=== PATIENT | male | born 1940 | race Caucasian/White ===

== ENCOUNTER 2019-05-18 06:29 | Inpatient (IN) ==
[2019-05-18 07:14] LABS: Basophils # (auto) 0.03 K/uL (0-0.2); Basophils % (auto) 0.4 %; Eosinophils # (auto) 0.15 K/uL (0-0.5); Eosinophils % (auto) 1.9 %; Hematocrit (blood only) 46.7 % (42-52); Hemoglobin 16.8 g/dL (14.0-18.0); Immature Granulocytes # (auto) 0.06 K/uL (0.00-0.02); Immature Granulocytes % (auto) 0.8 %; Lymphocytes # (auto) 1.34 K/uL (1.2-3.4); Lymphocytes % (auto) 17.1 %; Mean Corpuscular Volume 86.2 fL (80-100); Mean Platelet Volume 9.4 fL (7.4-10.4); Monocytes # (auto) 1.36 K/uL (0.11-0.59); Monocytes % (auto) 17.4 %; Neutrophils # (auto) 4.88 K/uL (1.4-6.5); Neutrophils % (auto) 62.4 %; Platelet Count 273 K/uL (130-400); RDW Coefficient of Variation 13.4 % (11.5-14.5); Red Blood Count 5.42 M/uL (4.7-6.1); White Blood Count 7.82 K/uL (4.8-10.8)
--- NOTE | 2019-05-18 07:18 | XRay Report ---
XR chest 1V portable CLINICAL HISTORY: Atypical chest pain COMPARISON STUDY: No previous studies for comparison. FINDINGS: The cardiac and mediastinal contours are normal. There is no evidence of focal pulmonary co nsolidation. There is no evidence of failure. No pleural effusions are visualized.[There is a mild sp inal curvature convex to the right. No pneumothorax is visualized. IMPRESSION: No active disease in the chest. Electronically signed by: Pipe Alexis M.D. 05/18/2019 7:17 AM
[2019-05-18 07:24] LABS: Prothrombin Time 10.1 Seconds (9.0-12.0)
[2019-05-18 07:42] LABS: Albumin Level 3.5 gm/dl (3.4-5.0); BUN Creatinine Ratio 12.9 (10-20); Calcium 8.9 mg/dl (8.5-10.1); Creatinine Clr Calc Pharmacy 67.1 ml/min; Est GFR (African American) 73.6; Est GFR (Non-African American) 63.5; Magnesium 2.1 mg/dl (1.8-2.4); Potassium 3.9 mmol/L (3.5-5.1)
[2019-05-18 07:54] LABS: Albumin Globulin Ratio 0.9 (0.9-2); Bilirubin,Total 0.6 mg/dl (0.2-1); Thyroid Stimulating Hormone 3.1 uIu/ml (0.300-4.500); Total Protein 7.5 gm/dl (6.4-8.2); Troponin I 0.203 ng/ml (0-0.045)
[2019-05-18] MEDS ORDERED: Heparin IV Low Dose WITH Bolus STA (08:26)
[2019-05-18] MEDS ORDERED: HEPARIN SODIUM/DEXTROSE 25,000 UNITS/500 ML BAG IV SCH (08:30)
--- NOTE | 2019-05-18 08:33 | Emergency Department Note ---
Entered by Shukri Bay acting as a scribe for Rosi Hollis DO History of Present Illness General Chief complaint: Chest Pain Stated complaint: CHEST PAIN,PAIN ACROSS SHOULDERS DOWN LT ARM Time Seen by Provider: 05/18/19 06:41 Source: patient History of Present Illness Onset (ago): hour(s) (earlier in the night, prior to arrival ) Location: chest Pain Consistency: + other (episode) Maximum Pain Intensity: 6 Quality: + other (chest pain) Associated symptoms: + cough and + other (+cold sweats; +left arm pain; +jaw pain; +diarrhea; -dizziness; -lightheadedness; ); no fever/chills and no shortness of breath Treatments prior to arrival: other (2 Excedrin and 1 Prilosec ) The patient is a 78 year old male, with past medical history of prostate cancer, who presents to the Emergency Room with complaints of an episode of chest pain that occurred in the middle of the night, prior to arrival. The patient notes the chest pain went across the left-side of his chest and woke him up in the middle of the night. The patient notes he also started developing cold sweats and left arm pain from this episode. However, the patient states the arm pain did not seem to be radiating from the chest pain but instead, seemed separate from the chest pain. He also reports of jaw pain, but the patient states he originally attributed this pain to grinding his teeth. The patient states the chest pain did not seem to be associated with anything including movement or taking deep breaths. The patient denies pain currently. He notes he took 2 Excedrin and 1 Prilosec prior to arrival. He states he had an episode of chest pain approximately a month ago, but he states the arm pain and cold sweats did not occur at that time. The patient states he had episode of diarrhea a while ago. He also notes of a cough. The patient denies dizziness, lightheadedness, shortness of breath, fever, or recent change in medications. The patient reports of increased stress recently due to a move from [place] to here. The patient also states he got a heart catheterization done in early February of 2011 where he states he was told he had a 15% blockage. The patient denies seeing a dewer. Home Medications Home Medications Medication Instructions Recorded Confirmed Type omeprazole magnesium [Prilosec OTC] 20 mg PO DAILY 05/18/19 05/18/19 History Allergies Allergy/AdvReac Type Severity Reaction Status Date / Time No Known Allergies Allergy Unverified 05/18/19 06:55 Past Med/Surg History Medical History Prostate cancer Family History Other No significant family history Social History Preferred Language: Swedish Communication Ability: Effective Burn Out Tender Lace Required: No Beliefs That Will Affect Care: None Current Living Situation: Family Feels Safe at Home: Yes Smoking Status: Former smoker Hx Alcohol Use: Yes Alcohol type: wine Hx Substance Use: No Review of Systems See HPI for pertinent positives & negatives. and A total of 10 systems reviewed and were otherwise negative Physical Exam Vital Signs Vital Signs - 24 hr 05/18/19 07:30 05/18/19 07:31 05/18/19 07:35 Pulse Rate 66 66 Pulse Rate [Apical] 67 Pulse Rate from SpO2 Sensor 65 67 Pulse Rhythm [Apical] Regular Pulse Strength [Apical] Normal Respiratory Rate 7 L 9 L 16 Respiratory Effort / Characteristics Non-Labored Spontaneous Respiratory Depth Normal Respiratory Pattern Regular Blood Pressure 168/94 H Blood Pressure [Left Arm] 168/94 H Blood Pressure Mean 126 Blood Pressure Mean [Left Arm] 118 Blood Pressure Position [Left Arm] Lying Pulse Oximetry 95 96 95 Oxygen Delivery Method Room Air 05/18/19 07:45 05/18/19 08:00 05/18/19 08:01 Pulse Rate 69 68 69 Pulse Rate [Apical] 68 Pulse Rate from SpO2 Sensor 69 67 69 Pulse Rhythm [Apical] Regular Pulse Strength [Apical] Normal Respiratory Rate 12 12 17 Respiratory Effort / Characteristics Non-Labored Spontaneous Respiratory Depth Normal Respiratory Pattern Regular Blood Pressure 173/103 H Blood Pressure [Left Arm] 173/103 H Blood Pressure Mean 136 Blood Pressure Mean [Left Arm] 126 Blood Pressure Position [Left Arm] Lying Pulse Oximetry 96 94 94 Oxygen Delivery Method Room Air 05/18/19 08:15 05/18/19 08:30 05/18/19 08:31 Pulse Rate 72 Pulse Rate [Apical] Pulse Rate from SpO2 Sensor 73 76 78 Pulse Rhythm [Apical] Pulse Strength [Apical] Respiratory Rate 14 15 17 Respiratory Effort / Characteristics Respiratory Depth Respiratory Pattern Blood Pressure 197/104 H Blood Pressure [Left Arm] Blood Pressure Mean 141 Blood Pressure Mean [Left Arm] Blood Pressure Position [Left Arm] Pulse Oximetry 95 94 97 Oxygen Delivery Method 05/18/19 08:45 05/18/19 09:00 05/18/19 09:01 Pulse Rate 67 73 Pulse Rate [Apical] Pulse Rate from SpO2 Sensor 74 70 73 Pulse Rhythm [Apical] Pulse Strength [Apical] Respiratory Rate 10 L 18 14 Respiratory Effort / Characteristics Respiratory Depth Respiratory Pattern Blood Pressure 182/117 H Blood Pressure [Left Arm] Blood Pressure Mean 138 Blood Pressure Mean [Left Arm] Blood Pressure Position [Left Arm] Pulse Oximetry 98 95 98 Oxygen Delivery Method 05/18/19 09:15 05/18/19 09:30 Pulse Rate 73 70 Pulse Rate [Apical] 70 Pulse Rate from SpO2 Sensor 73 70 Pulse Rhythm [Apical] Regular Pulse Strength [Apical] Normal Respiratory Rate 20 18 Respiratory Effort / Characteristics Non-Labored Spontaneous Respiratory Depth Normal Respiratory Pattern Regular Blood Pressure 184/105 H Blood Pressure [Left Arm] 184/105 H Blood Pressure Mean 125 Blood Pressure Mean [Left Arm] 131 Blood Pressure Position [Left Arm] Lying Pulse Oximetry 98 98 Oxygen Delivery Method Room Air GENERAL: alert, well appearing, well nourished, no distress, non-toxic EYE EXAM: normal conjunctiva, PERRL and EOM's grossly intact OROPHARYNX: no exudate, no erythema, lips, buccal mucosa, and tongue normal and mucous membranes are moist NECK: supple, no nuchal rigidity, no adenopathy, non-tender LUNGS: Clear to auscultation. Normal chest wall mechanics, no w/r/r HEART: no murmurs, S1 normal and S2 normal, no reproducible chest wall pain ABDOMEN: abdomen soft, non-tender, normo-active bowel sounds, no masses, no rebound or guarding. BACK: Back is symmetrical on inspection and there is no deformity, no midline tenderness, no CVA tenderness. SKIN: no rashes and no bruising UPPER EXTREMITIES: upper extremities are grossly normal. FROM, nml pulses b/l. LOWER EXTREMITIES: No pitting edema. FROM, nml pulses b/l. NEURO EXAM: Normal sensorium, cranial nerves II-XII intact, normal speech, no weakness of arms, no weakness of legs. Course Course 0643: Past medical records reviewed. The patient was evaluated in room A10. A complete history and physical exam was performed. 0821: I updated the patient on his case and his lab finding of elevated troponin. The patient states he is not experiencing any symptoms currently. Discussed plan for additional inpatient evaluation and he was in agreement. No contraindications per my discussion with pt for anticoagulation. 0849: I reviewed the patient's case with Dr. [facility]. Dr. Bianchi will evaluate the patient for further management. 0940: I discussed the patient's case with Dr. Ramirez-Cardiology. Dr. Ramirez is evaluating the patient at bedside. Consultations Consultation #1: I reviewed the patient's case with Dr. [facility]. Dr. Bianchi will evaluate the patient for further management. Time: 08:49 Consultation #2: I discussed the patient's case with Dr. Ramirez-Cardiology. Dr. Ramirez is evaluating the patient at bedside. Time: 09:40 Administered Medications Acetaminophen (Tylenol) 650 mg PO Q4H PRN PRN Reason: Mild Pain (scale 1-3) Stop: 06/17/19 12:29 Last Admin: 05/18/19 20:15 Dose: 650 mg Documented by: [id number] Admin: 05/18/19 14:21 Dose: 650 mg Documented by: [id number] Lisinopril (Zestril) [address] [facility] Stop: 06/17/19 12:34 Last Admin: 05/18/19 14:21 Dose: 10 mg Documented by: [id number] Metoprolol Tartrate (Lopressor) [address] [facility] Stop: 06/17/19 12:34 Last Admin: 05/18/19 20:10 Dose: 25 mg Documented by: [id number] Admin: 05/18/19 14:21 Dose: 25 mg Documented by: [id number] Discontinued Medications Atropine Sulfate (Atropine Sulfate) Confirm Administered Dose 1 mg IV .STK-MED ONE Stop: 05/18/19 11:08 Last Admin: 05/18/19 14:23 Dose: Not Given Documented by: [id number] Fentanyl Citrate (Fentanyl Citrate) Confirm Administered Dose 100 mcg .ROUTE .ST K-MED ONE Stop: 05/18/19 10:24 Last Increment: 05/18/19 11:58 Dose: 50 mcg Documented by: [id number] Heparin Sodium (Beef Lung) (Heparin Sod 5000u Heart Alert) Confirm Administered Dose 5,000 units .ROUTE .STK-MED ONE Stop: 05/18/19 08:46 Last Admin: 05/18/19 08:50 Dose: 4,000 units Documented by: [id number] Cosigned by: [id number] Heparin Sodium (Porcine) (Heparin Iv Bolus (Teenage Program Director Use Only)) Confirm Administered Dose 10,000 units .ROUTE .STK-MED ONE Stop: 05/18/19 10:23 Last Admin: 05/18/19 11:58 Dose: 10,000 units Documented by: [id number] Heparin Sodium (Porcine) (Heparin Iv Bolus (Teenage Program Director Use Only)) Confirm Administered Dose 10,000 units .ROUTE .STK-MED ONE Stop: 05/18/19 11:42 Last Admin: 05/18/19 14:22 Dose: Not Given Documented by: [id number] Heparin Sodium/Dextrose () 1 ea N/A NOW STA; Protocol Stop: 05/18/19 08:27 Last Admin: 05/18/19 08:54 Dose: Not Given Documented by: [id number] Heparin Sodium/Sodium Chloride (Heparin/Nss 1000 Unit/500ml Flush Bag) Confirm Administered Dose 3,000 units IV .STK-MED ONE Stop: 05/18/19 10:24 Last Admin: 05/18/19 11:57 Dose: 3,000 units Documented by: [id number] Hydralazine HCl (Hydralazine Hcl) Confirm Administered Dose 20 mg .ROUTE .STK- MED ONE Stop: 05/18/19 12:33 Last Admin: 05/18/19 14:22 Dose: Not Given Documented by: [id number] Heparin Sodium/Dextrose (Heparin Sodium/Dextrose) 25,000 units in 500 mls @ 0.02 mls/hr IV .Q24H AMRIK; Protocol Stop: 06/17/19 08:29 Last Admin: 05/18/19 08:51 Dose: 1,000 units/hr, 20 mls/hr Documented by: [id number] Cosigned by: [id number] Sodium Chloride (Nss 1000ml) 1,000 mls @ 100 mls/hr IV .Q10H AMRIK Stop: 05/18/19 18:29 Last Admin: 05/18/19 15:37 Dose: Not Given Documented by: [id number] Metoprolol Tartrate (Lopressor) 5 mg IV NOW STA Stop: 05/18/19 10:12 Last Admin: 05/18/19 10:35 Dose: 5 mg Documented by: [id number] Midazolam HCl (Versed) Confirm Administered Dose 2 mg .ROUTE .STK-MED ONE Stop: 05/18/19 10:24 Last Increment: 05/18/19 11:58 Dose: 1 mg Documented by: [id number] Nicardipine HCl (Cardene) Confirm Administered Dose 25 mg .ROUTE .STK-MED ONE Stop: 05/18/19 10:23 Last Admin: 05/18/19 11:57 Dose: 25 mg Documented by: [id number] Nitroglycerin (Nitro-Bid 2%) 1 inch EXT NOW ONE Stop: 05/18/19 08:52 Last Admin: 05/18/19 09:00 Dose: 1 inch Documented by: [id number] Nitroglycerin (Nitro-Bid 2%) 1 inch EXT Q6 AMRIK Stop: 06/17/19 13:59 Last Admin: 05/18/19 15:38 Dose: Not Given Documented by: [id number] Nitroglycerin/Dextrose (Nitroglycerin/D5w 100 Mcg/Ml 20ml Syringe) Confirm Administered Dose 2,000 mcg .ROUTE .STK-MED ONE Stop: 05/18/19 10:24 Last Admin: 05/18/19 11:58 Dose: 2,000 mcg Documented by: [id number] Pneumococcal Polyvalent Vaccine (Pneumovax-23) 25 mcg IM .ONCE ONE Stop: 05/18/19 15:01 Last Admin: 05/18/19 17:38 Dose: Not Given Documented by: [id number] Prasugrel (Effient) Confirm Administered Dose 60 mg PO .STK-MED ONE Stop: 05/18/19 12:02 Last Admin: 05/18/19 14:22 Dose: Not Given Documented by: [id number] Critical Care Time Critical Care Time: Yes Total Critical Care Time: 35 I have personally spent 35 minutes of critical care time in the direct management of this patient. This includes bedside care, interpretation of diagnostic studies, and testing, discussion with consultants, patient, and family members, and other required patient management activities. This 35 minutes is in excess of all separately billable procedures. Medical Decision Making Differential Diagnosis Differential diagnosis: Etiologies such as cardiac ischemia, aortic dissection, pulmonary embolism, pneumonia, pneumothorax, musculoskeletal, infections, pericarditis, myocarditis, esophageal rupture, gastrointestinal, as well as others were entertained. Medical Records Attestation: I reviewed the patient's medical records. Home Medications Current Medication List: was personally reviewed by me Laboratory Data Attestation: I reviewed the patient's lab results. Result diagrams: 05/19/19 05:57 05/19/19 05:57 Lab Results 05/18/19 05/18/19 05/18/19 Range/Units 07:02 07:02 07:02 WBC 7.82 (4.8-10.8) K/uL RBC 5.42 (4.7-6.1) M/uL Hgb 16.8 (14.0-18.0) g/dL Hct 46.7 (42-52) % MCV 86.2 (80-100) fL MCH 31.0 (25-34) pg MCHC 36.0 (32-36) g/dL RDW Std Deviation 42.0 (36.4-46.3) fL RDW Coeff of Paulo 13.4 (11.5-14.5) % Plt Count 273 (130-400) K/uL MPV 9.4 (7.4-10.4) fL Immature Gran % (Auto) 0.8 % Neut % (Auto) 62.4 % Lymph % (Auto) 17.1 % [place] % (Auto) 17.4 % Eos % (Auto) 1.9 % Baso % (Auto) 0.4 % Immature Gran # (Auto) 0.06 H (0.00-0.02) K/uL Neut # (Auto) 4.88 (1.4-6.5) K/uL Lymph # (Auto) 1.34 (1.2-3.4) K/uL [place] # (Auto) 1.36 H (0.11-0.59) K/uL Eos # (Auto) 0.15 (0-0.5) K/uL Baso # (Auto) 0.03 (0-0.2) K/uL PT 10.1 (9.0-12.0) Seconds INR 1.0 (0.9-1.1) Sodium 141 (136-145) mmol/L Potassium 3.9 (3.5-5.1) mmol/L Chloride 111 H (98-107) mmol/L Carbon Dioxide 26 (21-32) mmol/L Anion Gap 5.0 (3-11) BUN 14 (7-18) mg/dl Creatinine 1.10 (0.6-1.4) mg/dl Est Cr Clr Drug Dosing 67.1 ml/min Est GFR ( Amer) 73.6 Est GFR (Non-Af Amer) 63.5 BUN/Creatinine Ratio 12.9 (10-20) Glucose 109 H (70-99) mg/dl Calcium 8.9 (8.5-10.1) mg/dl Magnesium 2.1 (1.8-2.4) mg/dl Total Bilirubin 0.6 (0.2-1) mg/dl AST 14 L (15-37) U/L ALT 19 (12-78) U/L Alkaline Phosphatase 71 (45-117) U/L Troponin I 0.203 H* (0-0.045) ng/ml NT-Pro-B Natriuret Pep 95 (0-1800) pg/ml Total Protein 7.5 (6.4-8.2) gm/dl Albumin 3.5 (3.4-5.0) gm/dl Globulin 4.0 (2.5-4.0) gm/dl Albumin/Globulin Ratio 0.9 (0.9-2) Lipase 251 (73-393) U/L TSH 3.100 (0.300-4.500) uIu/ml 05/18/19 Range/Units 07:02 WBC (4.8-10.8) K/uL RBC (4.7-6.1) M/uL Hgb (14.0-18.0) g/dL Hct (42-52) % MCV (80-100) fL MCH (25-34) pg MCHC (32-36) g/dL RDW Std Deviation (36.4-46.3) fL RDW Coeff of Paulo (11.5-14.5) % Plt Count (130-400) K/uL MPV (7.4-10.4) fL Immature Gran % (Auto) % Neut % (Auto) % Lymph % (Auto) % [place] % (Auto) % Eos % (Auto) % Baso % (Auto) % Immature Gran # (Auto) (0.00-0.02) K/uL Neut # (Auto) (1.4-6.5) K/uL Lymph # (Auto) (1.2-3.4) K/uL [place] # (Auto) (0.11-0.59) K/uL Eos # (Auto) (0-0.5) K/uL Baso # (Auto) (0-0.2) K/uL PT (9.0-12.0) Seconds INR (0.9-1.1) Sodium (136-145) mmol/L Potassium (3.5-5.1) mmol/L Chloride (98-107) mmol/L Carbon Dioxide (21-32) mmol/L Anion Gap (3-11) BUN (7-18) mg/dl Creatinine (0.6-1.4) mg/dl Est Cr Clr Drug Dosing ml/min Est GFR ( Amer) Est GFR (Non-Af Amer) BUN/Creatinine Ratio (10-20) Glucose (70-99) mg/dl Calcium (8.5-10.1) mg/dl Magnesium (1.8-2.4) mg/dl Total Bilirubin (0.2-1) mg/dl AST (15-37) U/L ALT (12-78) U/L Alkaline Phosphatase (45-117) U/L Troponin I Cancelled (0-0.045) ng/ml NT-Pro-B Natriuret Pep (0-1800) pg/ml Total Protein (6.4-8.2) gm/dl Albumin (3.4-5.0) gm/dl Globulin (2.5-4.0) gm/dl Albumin/Globulin Ratio (0.9-2) Lipase (73-393) U/L TSH Cancelled (0.300-4.500) uIu/ml Imaging Data Radiologist's Impression: Radiology results as stated below per my review and the radiologist's interpretation: XR chest 1V portable CLINICAL HISTORY: Atypical chest pain COMPARISON STUDY: No previous studies for comparison. FINDINGS: The cardiac and mediastinal contours are normal. There is no evidence of focal pulmonary consolidation. There is no evidence of failure. No pleural effusions are visualized.[There is a mild spinal curvature convex to the right. No pneumothorax is visualized. IMPRESSION: No active disease in the chest. Electronically signed by: Pipe Alexis M.D. 05/18/2019 7:17 AM ECG Data Attestation: I personally reviewed and interpreted this ECG as follows: Indication: + chest pain Rate (beats per minute): 66 Rhythm: + normal sinus ECG Intervals/blocks: + Normal QRS, + Normal IA and + Normal QT-c ECG [place]: + Normal ECG ST segments: no ST depression and no ST elevation ECG Findings: + Peaked T waves (V3 and V4); no PACs and no PVCs Comparison ECG Date: no prior available Blood Pressure Blood Pressure Findings: Elevated blood pressure Blood Pressure Disposition: further management by hospitalist MDM Narrative Pt here with concerning story of chest pain. Doesn't currently follow with cardiology. Pt felt symptoms possibly due to increased stress as he is relocating from [place]. At time of my evaluation, symptoms had resolved. Pt updated on results. Pt with hyperacute T waves on EKG and positive troponin. Pt started on heparin drip and case discussed with hospitalist. Pt had take excedrin prior to arrival which has aspirin in it so no additional ASA was given. Nitro paste applied as a precaution due to elevated BP with likely NSTEMI. Pt denied any recurrent symptoms while in the ER. Impression & Plan Chest pain, Non-ST elevation AL (NSTEMI) Discharge Plan Visit Data *Final* Discharge Date/Time: 05/18/19 10:10 Chief Complaint: Chest Pain Stated Complaint: CHEST PAIN,PAIN ACROSS SHOULDERS DOWN LT ARM ED Provider: Rosi Hollis Discharge Problem: Chest pain, Non-ST elevation AL (NSTEMI) Patient Disposition: Still a Patient Discharge Instructions Interventions: ED Discharge Assessment Last Done: 05/18/19 10:10 Discharge Problem: Chest pain Qualifiers: Chest pain type: chest pain due to myocardial ischemia Ischemic chest pain type: unspecified angina pectoris type Qualified Code(s): I25.9 - Chronic ischemic heart disease, unspecified The scribe's documentation has been prepared under my direction and personally reviewed by me in its entirety. I confirm that the note above accurately reflects all work, treatment, procedures, and medical decision making performed by me.
[2019-05-18] MEDS ORDERED: HEPARIN SQ 5000 UNIT HEART ALERT CARP ONE (08:45)
[2019-05-18] MEDS ORDERED: NITROGLYCERIN 2% OINTMENT 30GM TUBE EXT ONE (08:51)
--- NOTE | 2019-05-18 09:43 | History & Physical Report ---
Date of Service May 18, 2019 Assessment & Plan (1) Non-ST elevation [place] (NSTEMI): Admit telemetry Troponin 0.2 on initial check, will trend, CXR without acute process Continue nitro paste and heparin gtt started in ED Patient took Excedrin before his arrival to the ED Consulted cardiology - patient will go to chemistry laboratory technician this morning (2) Hypertension: Patient with elevated blood pressures in the ED - currently 184/105 Will provide IV metoprolol for blood pressure control, may need to add other agents but at the moment the patient is not having symptoms and metoprolol will help to reduce myocardial oxygen requirements. Will transition to oral metoprolol once patient is out of the acute phase. (3) GERD (gastroesophageal reflux disease): continue home ppi (4) DVT prophylaxis: heparin gtt History of Present Illness Primary Care Provider: NO PCP Mr. Alfredo awoke around 0400 this morning with pain across his chest that he describes as a sort of "crackling" pain but not pressure. It extended to his left arm and jaw though at the time he thought that he was having three separate issues rather than a radiating pain. He had sweating as well, no nausea. Pain subsided after he arrived to the ED around 0630. He took two Excedrin at home before arriving at the ED. He admits to a lot of stress recently due to moving from [place] to [place] to be closer to family. He feels he has been having similar pain off and on for the last few months. He denies any recent illness, aches or chills, he did have a cough upon arrival to the Ed that that has subsided, no sob. 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 [employer] Family: father of Hodgkin lymphoma, brother has mantle cell lymphoma, mother lived to be Allergies Allergy/AdvReac Type Severity Reaction Status Date / Time No Known Allergies Allergy Unverified 05/18/19 06:55 Home Medications Home Medications Medication Instructions Recorded Confirmed Type omeprazole magnesium [Prilosec OTC] 20 mg PO DAILY 05/18/19 05/18/19 History Past Med/Surg History Medical History Prostate cancer Family History Other No significant family history Social History Preferred Language: Spanish Communication Ability: Effective Commercial Designer Required: No Beliefs That Will Affect Care: None Current Living Situation: Family Feels Safe at Home: Yes Smoking Status: Former smoker Hx Alcohol Use: Yes Alcohol type: wine Hx Substance Use: No Review of Systems Review of Systems: All systems reviewed & are unremarkable except as noted in HPI & below Physical Exam Physical Exam: General: no distress Eyes: normal inspection, PERLL Respiratory: chest non tender, clear to auscultation, normal breath sounds, no respiratory distress, no accessory muscle use Cardiac: regular rate and rhythm, no rub or gallop, no murmur, no edema, no jvd GI/: active bowel sounds, no abd pain or tenderness, soft, non distended Extremities: normal range of motion, normal strength, non tender Neuro/Psych: alert and oriented x 3, normal mood and affect Skin: normal color, dry Results & Data Vital Signs (Past 12 Hours) Vital Signs Temp Pulse Pulse Resp BP BP Pulse Ox 05/18/19 09:15 73 20 98 05/18/19 09:01 73 14 182/117 H 98 05/18/19 09:00 67 18 95 05/18/19 08:45 10 L 98 05/18/19 08:31 17 197/104 H 97 05/18/19 08:30 15 94 05/18/19 08:15 72 14 95 05/18/19 08:01 69 17 94 05/18/19 08:00 68 68 12 173/103 H 173/103 H 94 05/18/19 07:45 69 12 96 05/18/19 07:35 67 16 168/94 H 95 05/18/19 07:31 66 9 L 96 05/18/19 07:30 66 7 L 168/94 H 95 05/18/19 07:15 68 20 97 05/18/19 07:01 81 16 95 05/18/19 07:00 69 69 17 178/99 H 178/99 H 97 05/18/19 06:50 75 16 198/123 H 97 05/18/19 06:49 78 16 99 05/18/19 06:46 98 05/18/19 06:44 78 15 201/110 H 99 05/18/19 06:30 36.8 C 77 18 177/111 H 98 Code Status & VTE Plan VTE Prophylaxis Plan VTE Prophylaxis will be ordered: Yes Supervising Physician Co-Signing Physician Notes I supervised Claudia Bardales NP on this patient's care. I examined the patient today independently of her. I discussed the plan of care with her with the plan being as written in her note except for any following changes/exceptions: None. Feeling well after catheterization. No major concerns at present. He had been having some grief related to a transition in his living situation, but does not think it is reaching the level of depression. PG Care Time/CCT Total # of Minutes Spent Total Time Spent with Patient: Total time spent is greater than 50% in coordination of care (as documented) at patient's floor/unit and/or counseling patient:
[2019-05-18] MEDS ORDERED: METOPROLOL TARTRATE 1 MG/ML VIAL IV PRN (09:44)
[2019-05-18] MEDS ORDERED: METOPROLOL TARTRATE 1 MG/ML VIAL IV STA (10:11)
--- NOTE | 2019-05-18 10:11 | Cardiology Consultation ---
Date of Consultation May 18, 2019 Assessment & Plan (1) Chest pain: --concern for ACS 2. Elevated troponin 3. Hypertension 4. History of tobacco use 5. GERD Patient with an episode of chest and left arm pain with associated diaphoresis this am. Symptoms highly suspicious for ACS. Initial EKG with borderline inferior ST elevation and hyperacute T waves. Initial troponin is elevated. Patient is currently chest pain free. Recommend proceeding with cardiac catheterization. The patient is agreeable. This will be performed by Dr. Trevizo. Patient remains hypertensive and will give additional dose of IV metoprolol 5 mg now. History of Present Illness History of Present Illness Mr. Alfredo is a 78 year old male with medical history significant for GERD and hypertension. He is being seen in the emergency department in the setting of chest pain and elevated troponin. Patient woke up around 1 am with pain across his chest described as a "crackling." No aggravating or alleviating factors. The pain was severe. Eventually developed left arm pain as well as cold sweats. No nausea or shortness of breath. His pain persisted so he had his sister bring him to the ED. His pain resolved around the time he arrived to the ED at 6:30 am. Pain lasted about 5 hours in total. Initial electrocardiogram with borderline inferior ST elevation and hyperacute T waves. Troponin elevated at 0.203. Currently chest pain free. Has been hypertensive since arrival. Currently on heparin infusion. Patient reports undergoing cardiac catheterization in 2000 in [place] for an abnormal stress echo. He was told he had a 20% blockage at that time. Reports rare episodes of chest pain which occur in bed and typically resolve with changing positions. Has a history of GERD on Prilosec. Pain this morning different than usual reflux. Was told in the past he has high blood pressure but not on any antihypertensives. Does not routinely follow with any medical providers. Family history: Mother of CHF at 89. Social history: . 4 children. 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 Also worked at [employer]. Quit smoking in 1989. Allergies Allergy/AdvReac Type Severity Reaction Status Date / Time No Known Allergies Allergy Unverified 05/18/19 06:55 Home Medications Home Medications Medication Instructions Recorded Confirmed Type omeprazole magnesium [Prilosec OTC] 20 mg PO DAILY 05/18/19 05/18/19 History Patient History Medical History Prostate cancer Family History Other No significant family history Social History Preferred Language: Irish Feels Safe at Home: Yes Smoking Status: Former smoker Review of Systems Review of Systems: All systems reviewed & are unremarkable except as noted in HPI & below Physical Exam Physical Exam: General: No acute distress, comfortable. HEENT: Head is normal. PERRLA. EOMI. Sclerae anicteric. Ears, nose and throat unremarkable. Mucous membranes moist. Neck: Normal carotid upstrokes, no bruits. No appreciable JVD. Lungs: Clear to auscultation bilaterally without rales, rhonchi or wheezes. Cardiac: Regular rate and rhythm. S1-S2 normal. No appreciable murmur, gallop or rub. Abdomen: Soft and nontender. Bowel sounds normal. No mass or organomegaly. No abdominal bruit. Extremities/vascular: Well perfused. No peripheral edema. Radial, DP and PT pulses 2+ bilaterally Skin: No rash or abnormal lesions. Normal turgor. Neurologic: Nonfocal Psychiatric: Affect appropriate. Alert and oriented. Results & Data Vital Signs (Past 12 Hours) Vital Signs Temp Pulse Pulse Resp BP BP Pulse Ox 05/18/19 09:30 70 70 18 184/105 H 184/105 H 98 05/18/19 09:15 73 20 98 05/18/19 09:01 73 14 182/117 H 98 05/18/19 09:00 67 18 95 05/18/19 08:45 10 L 98 05/18/19 08:31 17 197/104 H 97 05/18/19 08:30 15 94 05/18/19 08:15 72 14 95 05/18/19 08:01 69 17 94 05/18/19 08:00 68 68 12 173/103 H 173/103 H 94 05/18/19 07:45 69 12 96 05/18/19 07:35 67 16 168/94 H 95 05/18/19 07:31 66 9 L 96 05/18/19 07:30 66 7 L 168/94 H 95 05/18/19 07:15 68 20 97 05/18/19 07:01 81 16 95 05/18/19 07:00 69 69 17 178/99 H 178/99 H 97 05/18/19 06:50 75 16 198/123 H 97 05/18/19 06:49 78 16 99 05/18/19 06:46 98 05/18/19 06:44 78 15 201/110 H 99 05/18/19 06:30 36.8 C 77 18 177/111 H 98 Laboratory Results Laboratory Results - last 24 hr 05/18/19 05/18/19 05/18/19 07:02 07:02 07:02 WBC 7.82 RBC 5.42 Hgb 16.8 Hct 46.7 MCV 86.2 MCH 31.0 MCHC 36.0 RDW Std Deviation 42.0 RDW Coeff of Paulo 13.4 Plt Count 273 MPV 9.4 Immature Gran % (Auto) 0.8 Neut % (Auto) 62.4 Lymph % (Auto) 17.1 [place] % (Auto) 17.4 Eos % (Auto) 1.9 Baso % (Auto) 0.4 Immature Gran # (Auto) 0.06 H Neut # (Auto) 4.88 Lymph # (Auto) 1.34 [place] # (Auto) 1.36 H Eos # (Auto) 0.15 Baso # (Auto) 0.03 PT 10.1 INR 1.0 Sodium 141 Potassium 3.9 Chloride 111 H Carbon Dioxide 26 Anion Gap 5.0 BUN 14 Creatinine 1.10 Est Cr Clr Drug Dosing 67.1 Est GFR ( Amer) 73.6 Est GFR (Non-Af Amer) 63.5 BUN/Creatinine Ratio 12.9 Glucose 109 H Calcium 8.9 Magnesium 2.1 Total Bilirubin 0.6 AST 14 L ALT 19 Alkaline Phosphatase 71 Troponin I 0.203 H* NT-Pro-B Natriuret Pep 95 Total Protein 7.5 Albumin 3.5 Globulin 4.0 Albumin/Globulin Ratio 0.9 Lipase 251 TSH 3.100 05/18/19 07:02 WBC RBC Hgb Hct MCV MCH MCHC RDW Std Deviation RDW Coeff of Paulo Plt Count MPV Immature Gran % (Auto) Neut % (Auto) Lymph % (Auto) [place] % (Auto) Eos % (Auto) Baso % (Auto) Immature Gran # (Auto) Neut # (Auto) Lymph # (Auto) [place] # (Auto) Eos # (Auto) Baso # (Auto) PT INR Sodium Potassium Chloride Carbon Dioxide Anion Gap BUN Creatinine Est Cr Clr Drug Dosing Est GFR ( Amer) Est GFR (Non-Af Amer) BUN/Creatinine Ratio Glucose Calcium Magnesium Total Bilirubin AST ALT Alkaline Phosphatase Troponin I Cancelled NT-Pro-B Natriuret Pep Total Protein Albumin Globulin Albumin/Globulin Ratio Lipase TSH Cancelled PG Care Time/CCT Total # of Minutes Spent Total Time Spent with Patient: Total time spent is greater than 50% in coordination of care (as documented) at patient's floor/unit and/or counseling patient:
[2019-05-18] MEDS ORDERED: NiCARDipine HCL INJ 2.5 MG/ML 10 ML AMP ONE (10:22)
[2019-05-18] MEDS ORDERED: HEPARIN (PORCINE) 1000 UNIT/ML 10 ML (CATH LAB USE ONLY) ONE ×2 (10:22→11:41)
[2019-05-18] MEDS ORDERED: MIDAZOLAM HCL 1 MG/ML 2ML VIAL ONE (10:23)
[2019-05-18] MEDS ORDERED: NITROGLYCERIN/D5W 100MCG/ML 20ML SYR ONE (10:23)
[2019-05-18] MEDS ORDERED: fentaNYL citrate 100 MCG/2 ML VIAL ONE (10:23)
[2019-05-18] MEDS ORDERED: ATROPINE SULFATE 0.1 MG/ML 10ML SYR IV ONE (11:07)
[2019-05-18] MEDS ORDERED: PRASugrel TAB 10 MG TAB PO ONE (12:01)
--- NOTE | 2019-05-18 12:08 | Pre Anesthesia Assessment ---
Date of Service May 18, 2019 Pre Sedation Assessment Vital Signs Temp Pulse Pulse Resp BP BP Pulse Ox 05/18/19 10:35 80 210/102 H 05/18/19 10:10 98.2 F 70 20 172/103 H 97 05/18/19 10:02 20 172/103 H 97 05/18/19 10:00 20 90 05/18/19 09:45 70 18 98 05/18/19 09:30 70 70 18 184/105 H 184/105 H 98 05/18/19 09:15 73 20 98 05/18/19 09:01 73 14 182/117 H 98 05/18/19 09:00 67 18 95 05/18/19 08:45 10 L 98 05/18/19 08:31 17 197/104 H 97 05/18/19 08:30 15 94 05/18/19 08:15 72 14 95 05/18/19 08:01 69 17 94 05/18/19 08:00 68 68 12 173/103 H 173/103 H 94 05/18/19 07:45 69 12 96 05/18/19 07:35 67 16 168/94 H 95 05/18/19 07:31 66 9 L 96 05/18/19 07:30 66 7 L 168/94 H 95 05/18/19 07:15 68 20 97 05/18/19 07:01 81 16 95 05/18/19 07:00 69 69 17 178/99 H 178/99 H 97 05/18/19 06:50 75 16 198/123 H 97 05/18/19 06:49 78 16 99 05/18/19 06:46 98 05/18/19 06:44 78 15 201/110 H 99 05/18/19 06:30 98.2 F 77 18 177/111 H 98 Cardiovascular RRR, no murmur, no edema Respiratory normal respiratory effort, lungs clear to auscultation Pre-Sedation Airway Assessment Smoking Status: Former smoker Short, Thick Neck: No Thyromental Distance: > or= 3.5 Finger Breadths Oral Cavity: + Capped Teeth Mallampati Class: III ASA: ASA3 NPO Status Date of Last Intake of Fluids: 05/17/19 Time of Last Intake of Fluids: 22:00 Date of Last Intake of Solid Food: 05/17/19 Time of Last Intake of Solid Foods: 22:00 Procedure Planning Contraindications for Sedation: none Current Medications Reviewed: Yes Notes The planned sedation has been discussed with the patient. Informed Consent was obtained. I have identified the patient, determined the appropriateness of sedation and have assessed the patient immediately prior to the procedure. All medicine(s) and interventions are by my order.
--- NOTE | 2019-05-18 12:09 | Post Anesthesia Assessment ---
Date of Service May 18, 2019 Post Sedation Assessment Vital Signs Temp Pulse Pulse Resp BP BP Pulse Ox 05/18/19 10:35 80 210/102 H 05/18/19 10:10 98.2 F 70 20 172/103 H 97 05/18/19 10:02 20 172/103 H 97 05/18/19 10:00 20 90 05/18/19 09:45 70 18 98 05/18/19 09:30 70 70 18 184/105 H 184/105 H 98 05/18/19 09:15 73 20 98 05/18/19 09:01 73 14 182/117 H 98 05/18/19 09:00 67 18 95 05/18/19 08:45 10 L 98 05/18/19 08:31 17 197/104 H 97 05/18/19 08:30 15 94 05/18/19 08:15 72 14 95 05/18/19 08:01 69 17 94 05/18/19 08:00 68 68 12 173/103 H 173/103 H 94 05/18/19 07:45 69 12 96 05/18/19 07:35 67 16 168/94 H 95 05/18/19 07:31 66 9 L 96 05/18/19 07:30 66 7 L 168/94 H 95 05/18/19 07:15 68 20 97 05/18/19 07:01 81 16 95 05/18/19 07:00 69 69 17 178/99 H 178/99 H 97 05/18/19 06:50 75 16 198/123 H 97 05/18/19 06:49 78 16 99 05/18/19 06:46 98 05/18/19 06:44 78 15 201/110 H 99 05/18/19 06:30 98.2 F 77 18 177/111 H 98 Recovery Score Activity: Moves 4 extremities Respiration: Deep Breath/Cough Circulation: +/-20% PreAnes Value Consciousness: Fully Awake Oxygen Saturation: O2 needed for >90% Discharge Sedation Level of Care: Fast Track Phase II Post Sedation Plan On clinical assessment, the patient appears to have tolerated the sedation without complications. Patient is recovering as anticipated. Patient will continue to be monitored by nursing and may be discharged when sedation discharge criteria are met per below protocol. Upon Completions of procedure up to 15 minutes continue every 5 minute vital signs and the P.A.R. score; then discharge to a Phase I or Fast Track to Phase II per the following guidelines: * Discharge Patient to appropriate Phase II area if PAR is 8 or greater or return to pre- procedure baseline. The post - procedure orders will be as directed. * If PAR score is less than 8 or not return to pre-procedure baseline then patient will follow Phase I monitoring till PAR is reached for Phase II. The Phase I may be done in procedure room or may call to secure a Phase I area. * If naloxone or flumazenil are used for reversal, hold in Phase I for continued monitoring from when last reversal dose was given for a minimum of 60 minutes or longer pending the nurse and/or physician discretion of patient condition before discharge to Phase II. Please call the Sedation Physician to re-evaluate and complete post-note for discharge to Phase II area. Do NOT discharge from procedure sedation or Phase 1 until post- sedation evaluation note is complete by procedure /sedation MD Sedation Discharge Instructions to be given to the patient at discharge to home.
--- NOTE | 2019-05-18 12:29 | Cardiac Catheterization ---
[facility] Data: Identification Clerk Cardiac Status Clinical evaluation leading to the procedure CAD Presenation: Non STEMI Anginal Classification: CCS IV Heart Failure: No Cardiogenic Shock within 24 Hours: No Cardiac Arrest within 24 Hours: No Imaging Studies Past 6 Months: No Stress Studies Past 6 Months: No Diagnostic Physicians Name: Ervin Trevizo MD Status: Urgent Closure Device Percutaneous Entry Location: Radial Closure Device: Radial Band Recommendations: PCI without planned CABG PCI Indication: PCI for high risk Non-JONAS Lesion Segment Name: Mid RCA Culprit Artery: Yes Stenosis Prior to Rx (%): 95 Chronic Total Occlusion: No IVUS: No FFR: No Pre-Procedure LUCIUS Flow: 2 Previously Treated Lesion: No Lesion Complexity: High/C Lesion Length (mm): 20 Thrombus Present: Yes Bifurcation Lesion: No Guidewire Across Lesion: Stenosis Post-Procedure (%): 0 Post-Procedure LUCIUS Flow: 3 Devices(s) Deployed: Yes Yes Intraprocedure Events Significant Disection: No Perforation: No Cardiac Cath Procedure Full Procedure Date May 18, 2019 Pre-Procedure Diagnosis Pre-Procedure Diagnosis: Non STEMI AUC Score AUC Score: 8 Post-Procedure Diagnosis Post-Procedure Diagnosis: Severe CAD, Successful PCI and Normal Intracardiac Pressures Procedure(s) Performed Procedure(s) Performed: Coronary Angiography, Left Heart Cath, Drug Eluting Stent and IVUS Cutter Grinder Operator Ervin Trevizo MD Waste Hand(s) Alberto Estimated Blood Loss Estimated Blood Loss: 15 Medication(s) Medication(s): Fentanyl, Heparin, Lidocaine 1%, Nicardipine, Nitroglycerin and Versed Medication(s): Prasugrel Summary of Findings Indication: High risk NSTEMI Access: 6 Fr slender right radial artery Catheters: [place], 5 Fr JL 3.5 guide, AR-1 guide Findings: LM -medium caliber vessel, angulated takeoff with 30 to 40% ostial stenosis angiographically. No catheter dampening, good efflux. LAD -medium caliber vessel, proximal to mid luminal irregularities distal vessel tapers to apex. Moderate caliber second diagonal without significant disease Circumflex -large caliber vessel, 20% proximal disease, 50-60 % mid segment disease extending into large OM 2 and distal AV groove segment. RCA -large caliber, dominant, 95% earlymid RCA stenosis with associated thrombus and post stenotic aneurysmal segment, 30 to 40% mid segment disease after takeoff of acute marginal. Large right PDA with 40 to 50% distal disease. LVEDP -17 IVUS of left main Left main cannulated with JL 3.5 guide BMW wire placed into distal LAD Swain IVUS catheter placed into mid LAD Pullback revealed mild proximal to mid LAD disease. Ostium of left main had eccentric plaque with at most 20% stenosis. Wire removed and post procedure angiography revealed no coronary complication. -- PCI of mid RCA-- Antithrombotic therapy: Heparin, Prasugrel Procedure: RCA cannulated with AR-1 guide BMW wire passed across lesion into distal vessel Mid RCA lesion predilated with 2.5 compliant balloon Dilated lesion stented with 3.0 x 18 mm [place] which extends across aneurysmal segment Stent post-dilated with 3.5 noncompliant balloon. Stent across aneurysmal RCA postdilated with 5.0 balloon IC vasodilators administered for spasm Appeared to have possible edge dissection distal to initial stent RCA rewired with BMW wire and telescope guide assist placed Mid RCA after stent dilated with 2.5 balloon Second BROCK (2.75 x 12 mm [place]) placed to mid RCA overlapping distal aspect of initial stent Post procedure LUCIUS 3 flow, stent well expanded with minimal residual stenosis and no apparent cardiac complications. Arterial Closure: TR band Summary: 1. 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 Moderate nonobstructive non-culprit vessel CAD 30% angulated ostial left main (nonobstructive by IVUS). 50 to 60% mid circumflex at bifurcation of large OM 2 3. Normal intracardiac filling pressure 4. Successful PCI of mid RCA with 2 overlapping drug-eluting stents (3.0 x 18, 2.75 x 12 [place]; stent postdilated with 3.5 NC and stent covering aneurysmal vessel dilated with 5.0 NC). 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 Recommend likely extended DAPT in the setting of overlapping stents covering aneurysmal segment. Continue statin, and ASCVD risk factor modification Consult cardiac Rehab Hemodynamics Rest Ao:: 140/79/107 Final Ao: 178/96/113 LV: 149/17 Recommendations Recommendations: PCI without planned CABG Specimens Specimens: None Radiation Exposure (mGy) 5213 Contrast (mls) 200 Fluids (cc crystalloids) Fluids (cc crystalloids): 140 Drains Drains: None Anesthesia Moderate Procedural Complication(s) None Disposition PCU I attest to the content of the Intraoperative Record and any orders documented therein. Any exceptions are noted below. [facility] Card Cath Procedure Codes Cardiac Catheterization Procedure 1: Cardiovascular Cath Procedures: 35488 Coronaries and LHC (+/-LV) Therapeutic Services & Ancillary Proc Procedure 1: Cardiovascular Tx and Anc Procedures: 18484 IV Ultrasound (Coronary or Graft) Moderate Sedation Procedure 1: Sedation/Anesthesia: 71491 Mod Sedation by the same physician;Init15 Min Child Age 5 & Up Procedure 2: Sedation/Anesthesia: 94130 Mod Sedation by the same physician; Ea [id number] Minutes Stenting Procedure 1: Cardiovascular Stent Procedures: 99975 Perc transcatheter placement of intracoronary stent(s), with ang PG Care Time/CCT Total # of Minutes Spent Total Time Spent with Patient: Total time spent is greater than 50% in coordination of care (as documented) at patient's floor/unit and/or counseling patient:
[2019-05-18] MEDS ORDERED: NITROGLYCERIN SL 0.4 MG/TAB TAB SL PRN (12:30)
[2019-05-18] MEDS ORDERED: ONDANSETRON INJ 2 MG/ML 2 ML VIAL IV PRN ×2 (12:30→13:15)
[2019-05-18] MEDS ORDERED: HydrALAZINE HCL 20 MG/ML VIAL ONE (12:32)
[2019-05-18] MEDS ORDERED: ALUMINUM/MAGNESIUM SUSP 30 ML UDC PO PRN (13:15)
[2019-05-18] MEDS ORDERED: POLYETHYLENE (MIRALAX) 17 GM PACK PO PRN (13:15)
[2019-05-18] MEDS ORDERED: MoRPHine SULFATE 2 MG/ML CARP IV PRN (13:15)
[2019-05-18] MEDS ORDERED: SODIUM CHLORIDE 0.9% 1000ML 1,000 ML IV SCH (13:30)
[2019-05-18] MEDS ORDERED: NITROGLYCERIN 2% OINTMENT 30GM TUBE EXT SCH (14:00)
[2019-05-18] MEDS: METOPROLOL TARTRATE 25 MG TAB PO SCH ×2 (14:21→20:10)
[2019-05-18] MEDS: lisinopriL 10 MG TAB PO SCH (14:21)
[2019-05-18] MEDS: ACETAMINOPHEN 325 MG TAB PO PRN ×2 (14:21→20:15)
[2019-05-18] MEDS ORDERED: PNEUMOCOCCAL Polysaccharide Vaccine 25mcg/0.5mL vial/Syr IM ONE (15:00)
[2019-05-18] MEDS ORDERED: INFLUENZA Vaccine HIGH DOSE 65+yrs 0.5 mL Syr IM ONE (15:00)
[2019-05-19 06:09] LABS: Hematocrit (blood only) 40.5 % (42-52); Hemoglobin 14.4 g/dL (14.0-18.0); Lymphocytes % (auto) 19.1 %; Mean Corpuscular Hemoglobin 30.8 pg (25-34); Mean Corpuscular Hgb Conc 35.6 g/dL (32-36); Mean Corpuscular Volume 86.5 fL (80-100); Neutrophils % (auto) 60.4 %; Platelet Count 253 K/uL (130-400); RDW Coefficient of Variation 13.4 % (11.5-14.5); RDW Standard Deviation 42.2 fL (36.4-46.3); Red Blood Count 4.68 M/uL (4.7-6.1); White Blood Count 10.23 K/uL (4.8-10.8)
[2019-05-19 06:10] LABS: Basophils # (auto) 0.03 K/uL (0-0.2); Basophils % (auto) 0.3 %; Eosinophils # (auto) 0.11 K/uL (0-0.5); Eosinophils % (auto) 1.1 %; Immature Granulocytes # (auto) 0.05 K/uL (0.00-0.02); Immature Granulocytes % (auto) 0.5 %; Lymphocytes # (auto) 1.95 K/uL (1.2-3.4); Monocytes % (auto) 18.6 %; Neutrophils # (auto) 6.19 K/uL (1.4-6.5)
[2019-05-19 06:38] LABS: Albumin Level 3.1 gm/dl (3.4-5.0); BUN Creatinine Ratio 12.3 (10-20); Calcium 8.7 mg/dl (8.5-10.1); Est GFR (African American) 78.8; Potassium 3.6 mmol/L (3.5-5.1)
[2019-05-19 06:41] LABS: Albumin Globulin Ratio 0.9 (0.9-2); Bilirubin,Total 0.8 mg/dl (0.2-1); Globulin 3.5 gm/dl (2.5-4.0); Total Protein 6.6 gm/dl (6.4-8.2)
[2019-05-19] MEDS: lisinopriL 10 MG TAB PO SCH (07:50)
[2019-05-19] MEDS: METOPROLOL TARTRATE 25 MG TAB PO SCH (07:51)
[2019-05-19] MEDS ORDERED: ATORVASTATIN 40 MG TAB PO SCH (09:00)
[2019-05-19] MEDS ORDERED: NON-FORMULARY MEDICATION (Omeprazole Magnesium [Prilosec Otc] 20 MG) PO SCH (09:00)
[2019-05-19] MEDS ORDERED: ASPIRIN 81 MG ECTAB PO SCH ×2 (09:00)
[2019-05-19] MEDS ORDERED: PANTOprazole 40 MG TAB PO SCH (09:00)
[2019-05-19] MEDS ORDERED: PRASugrel TAB 10 MG TAB PO SCH (09:00)
--- NOTE | 2019-05-19 10:12 | Cardiology Progress Note ---
Date of Service May 19, 2019 Assessment & Plan (1) Non-ST elevation WI (NSTEMI): --post PCI of mid RCA with 2 overlapping BROCK 2. Moderate nonobstructive non-culprit CAD 3. Hypertension 4. Dyslipidemia 5. History of tobacco use Patient admitted yesterday with NSTEMI post PCI of mid RCA with 2 overlapping stents. Otherwise with moderate nonobstructive disease. No recurrent chest pain. Hemodynamically and electrically stable. On exam well perfused without signs of heart failure. No complications at right radial access site. --Up walking halls today, if tolerates OK to d/c from cardiac standpoint --Dual antiplatelet therapy with ASA and prasugrel for minimum of one year --Continue metoprolol and lisinopril, can increase as outpatient if needed for BP control --High intensity statin --Consult cardiac rehab --F/U in our office in 2 weeks Subjective Patient is feeling well today without acute complaints. Post cardiac cath yesterday with evidence of acute thrombotic early-mid RCA stenosis with poststenotic aneurysm. Underwent successful PCI of mid RCA with 2 overlapping drug eluding stents. Otherwise with moderate nonobstructive disease of ostial left main (nonobstructive by IVUS) and mid circumflex at bifurcation of large OM2. No recurrent chest pain. No shortness of breath, orthopnea, PND, lightheadedness, near syncope or syncope. No issues at right radial access site. Troponin peaked at 3. No events on tele. Review of Systems Review of Systems: All systems reviewed & are unremarkable except as noted in HPI & below Physical Exam Physical Exam: General: No acute distress, comfortable. HEENT: Head is normal. PERRLA. EOMI. Sclerae anicteric. Ears, nose and throat unremarkable. Mucous membranes moist. Neck: Normal carotid upstrokes, no bruits. No appreciable JVD. Lungs: Clear to auscultation bilaterally without rales, rhonchi or wheezes. Cardiac: Regular rate and rhythm. S1-S2 normal. No appreciable murmur, gallop or rub. Abdomen: Soft and nontender. Bowel sounds normal. No mass or organomegaly. No abdominal bruit. Extremities/vascular: -- Well perfused. No peripheral edema. --Radial, DP and PT pulses 2+ bilaterally --R radial access site without hematoma or ecchymosis. Distal pulse/sensation intact. Skin: No rash or abnormal lesions. Normal turgor. Neurologic: Nonfocal Psychiatric: Affect appropriate. Alert and oriented. Results & Data Vital Signs (Past 12 Hours) Vital Signs Temp Pulse Pulse Pulse Resp BP Pulse Ox 05/19/19 08:42 64 05/19/19 07:40 36.6 C 74 18 156/80 H 96 05/19/19 04:46 36.8 C 66 18 120/63 97 05/18/19 23:40 36.9 C 66 19 133/64 96 Laboratory Results Laboratory Results - last 24 hr 05/18/19 05/19/19 05/19/19 13:30 05:57 05:57 WBC 10.23 RBC 4.68 L Hgb 14.4 Hct 40.5 L MCV 86.5 MCH 30.8 MCHC 35.6 RDW Std Deviation 42.2 RDW Coeff of Paulo 13.4 Plt Count 253 MPV 9.0 Immature Gran % (Auto) 0.5 Neut % (Auto) 60.4 Lymph % (Auto) 19.1 [place] % (Auto) 18.6 Eos % (Auto) 1.1 Baso % (Auto) 0.3 Immature Gran # (Auto) 0.05 H Neut # (Auto) 6.19 Lymph # (Auto) 1.95 [place] # (Auto) 1.90 H Eos # (Auto) 0.11 Baso # (Auto) 0.03 Sodium 142 Potassium 3.6 Chloride 111 H Carbon Dioxide 26 Anion Gap 5.0 BUN 13 Creatinine 1.04 Est Cr Clr Drug Dosing 71.0 Est GFR ( Amer) 78.8 Est GFR (Non-Af Amer) 68.0 BUN/Creatinine Ratio 12.3 Glucose 103 H Calcium 8.7 Total Bilirubin 0.8 AST 28 ALT 19 Alkaline Phosphatase 59 Troponin I 3.090 H* Total Protein 6.6 Albumin 3.1 L Globulin 3.5 Albumin/Globulin Ratio 0.9 05/19/19 08:26 WBC RBC Hgb Hct MCV MCH MCHC RDW Std Deviation RDW Coeff of Paulo Plt Count MPV Immature Gran % (Auto) Neut % (Auto) Lymph % (Auto) [place] % (Auto) Eos % (Auto) Baso % (Auto) Immature Gran # (Auto) Neut # (Auto) Lymph # (Auto) [place] # (Auto) Eos # (Auto) Baso # (Auto) Sodium Potassium Chloride Carbon Dioxide Anion Gap BUN Creatinine Est Cr Clr Drug Dosing Est GFR ( Amer) Est GFR (Non-Af Amer) BUN/Creatinine Ratio Glucose Calcium Total Bilirubin AST ALT Alkaline Phosphatase Troponin I 2.970 H* Total Protein Albumin Globulin Albumin/Globulin Ratio PG Care Time/CCT Total # of Minutes Spent Total Time Spent with Patient: Total time spent is greater than 50% in coordination of care (as documented) at patient's floor/unit and/or counseling patient:
--- NOTE | 2019-05-19 15:13 | Discharge Summary ---
Date of Service May 19, 2019 Admission HPI Per Admitting Provider Mr. Alfredo awoke around 0400 this morning with pain across his chest that he describes as a sort of "crackling" pain but not pressure. It extended to his left arm and jaw though at the time he thought that he was having three separate issues rather than a radiating pain. He had sweating as well, no nausea. Pain subsided after he arrived to the ED around 0630. He took two Excedrin at home before arriving at the ED. He admits to a lot of stress recently due to moving from [place] to [place] to be closer to family. He feels he has been having similar pain off and on for the last few months. He denies any recent illness, aches or chills, he did have a cough upon arrival to the Ed that that has subsided, no sob. 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 Family: father of Hodgkin lymphoma, brother has mantle cell lymphoma, mother lived to be Principal Diagnosis NSTEMI Discharge Exam Constitutional WD/WN, vitals as above Respiratory normal respiratory effort, lungs clear to auscultation Cardiovascular RRR, no murmur, no edema Gastrointestinal (Abdomen) Inspection/Auscultation: abdomen normal to inspection and normal bowel sounds; abdomen not distended Percussion/Palpation: abdomen soft; abdomen nontender Musculoskeletal no cyanosis or clubbing, extremities motor strength 5/5 Skin no rashes, warm and dry Neurologic moves all extremities and awake Psychiatric A+Ox3, euthymic affect Discharge Data Allergies Allergy/AdvReac Type Severity Reaction Status Date / Time No Known Allergies Allergy Unverified 05/18/19 06:55 Consultations 05/18/19 09:23 ED Decision to Admit Stat 05/18/19 12:34 Consult Cardiac Rehabilitation Routine Procedures Performed Operation Date: 05/18/19 10:00 Actual Procedures p Cath, Left with Cors and Vent - Byron Trevizo MD s Drug Eluting Stent SGl Vessel - Byron Trevizo MD s IVUS Coronary Single Vessel - Byron Trevizo MD s Cineradiography w/Routine Exam - Byron Trevizo MD Ordered Studies 05/18/19 10:15 CL Cath Imgs for PACS use only Stat 05/18/19 12:14 CL IVUS Coronary Single Vessel Routine Hospital Course (1) Non-ST elevation IL (NSTEMI): Cardiology saw patient in the ED and felt that the the EKG findings were concerning for evolving IL Troponin 0.2 on initial check and peaked at 3. He was taken to laboratory [facility] 05/18 and had 2 overlapping BROCK placed to his RCA d/t 95% occlusion Will discharge on dual antiplatelet therapy with prasugrel and ASA, high dose statin, metoprolol and lisinopril Cardiology ok with discharge today. No events on monitor. Patient walked the halls today and tolerated well. (2) Hypertension: Patient with elevated blood pressures on admission Initiated antihypertensives as above (3) GERD (gastroesophageal reflux disease): replace omeprazole with pantoprazole d/t interaction with prasugrel (4) DVT prophylaxis: heparin gtt prior to cath Total Time Total Time Spent Total Time Spent (In Minutes): greater than 30 mintues Discharge Plan Discharge Items Patient Disposition: Home - Self-Care Reason For Visit: NSTEMI Discharge Diagnosis: NSTEMI Activity: As commented below Bathing Comment: please follow instructions below Non-emergency contact: Primary Care Provider Call non-emergency contact if: you have any medication questions, your symptoms worsen, your pain is not controlled, you have a fever and your wound has increased drainage Follow-up/Referrals: Swathi Moralez PA-C [Physician Butcher Apprentice] - 06/02/19 2:30 pm (Please, follow up at [facility]iology Office with Swathi Moralez PA-C on June 02 at 2:30 pm. *The office is located in [address] of [facility]. If you need to change this appointment, call the office at [phone].) Diet: Heart Healthy and Low Sodium (2gm) Addtl Attending Provider Instructions: (1) Non-ST elevation IL (NSTEMI): You were admitted to the hospital for a heart attack which was classified as an NSTEMI. This means that your EKG did not have electrical changes in ST wave which can sometimes be the difference between a more serious and less serious heart attack. 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 You had 2 overlapping stents placed at the site of this occlusion by Dr. Ervin Trevizo. You were also seen by Dr. Oumar Ramirez and LELE Miranda from cardiology. - You will continue on dual antiplatelet therapy with aspirin and prasugrel for a minimum of one year. These medications are important to prevent clot formation within the stent that was placed in your coronary artery. - You were started on high intensity statin therapy with atorvastatin. This medication has vascular benefits beyond just lowering your bad cholesterol (LDL) that will be helpful to try and prevent future cardiovascular events. - Follow the attached instructions for taking sublingual nitroglycerin. For the time being as you have just had a heart catheterization, you should call 911 if you have chest pain. You can discuss using nitro further at your next cardiology appointment - Cardiology will have cardiac rehabilitation call you to set up your first appointment. You will also follow up in the cardiology office with Swathi Moralez. - Please establish with the primary care provider and see them within the next 1-2 weeks. (2) Hypertension: Your blood pressure was elevated on admission to the hospital. - Cardiology has initiated metoprolol and lisinopril to help control your blood pressure. Metoprolol has the added benefit of helping decrease oxygen demand in your heart. - Please purchase a home blood pressure cuff and check your blood pressure daily. You should be seated calmly with legs uncrossed for at least five minutes before taking a reading. Keep a log of your values to bring to your next doctor appointment. (3) GERD (gastroesophageal reflux disease): You will be placed on pantoprazole instead of omeprazole due to possible interaction with prasugrel. ACTIVITY RECOMMENDATIONS: Excess manipulation of the wrist should be avoided for the next 24-48 hours. * No lifting over 2 pounds (approximately a 1/2 gallon of milk) with the utilized arm for 24 hours. * No strenuous activity such as bowling or tennis for 3 days. * Keep the site of the procedure covered with a bandage for 24 hours. *You may shower the day after the procedure. Do not take a tub bath or submerge the puncture site in water for the next 3 days. *Do not operate any motorized equipment for 3 days. SPECIAL CARE INSTRUCTIONS: The site may be slightly bruised and sore following your procedure. Should any of the following occur, contact the Dr. who performed your procedure. 1. Redness/inflammation, swelling, chills, or fever, or colored drainage at procedure site within 3-7 days after your procedure. 2. Coldness, discoloration, ongoing numbness, severe pain, or swelling. Expect mild tingling of hand and tenderness at the puncture site for up to three days. If this persists beyond three days, or other symptoms develop, notify the Dr. who performed your procedure. BLEEDING: If the procedure site on your wrist begins to bleed, do not panic 1. Place 1 or 2 fingers firmly just slightly above the insertion site to stop the bleeding. You may be able to feel your pulse as you hold pressure. 2. Lift your finger after 5 minutes to see if the bleeding has stopped. 3. Once the bleeding has stopped, gently wipe the wrist area clean with a bandage. * If the bleeding from your wrist does not stop after 10 minutes, or if there is a large amount of bleeding or spurting, call 911 ([address] drive yourself to the hospital). SKIN IRRITATION: * You may experience some redness and/or swelling in the area where radiation was administered. If any skin irritation occurs, please contact your family physician. FOLLOW UP VISIT: Keep any scheduled doctor appointments. Pending Studies at Discharge: No Stand-Alone Forms: Call Back Authorization, [facility], Smoking Cessation Medications and DC Order Prescriptions: New atorvastatin 40 mg Tablet 80 mg PO QAM Qty: 30 RF: 2 aspirin [Ecotrin Low Strength] 81 mg Tablet,Delayed Release (Dr/Ec) 81 mg PO QAM Qty: 30 RF: 2 lisinopril 10 mg Tablet 10 mg PO QAM Qty: 30 RF: 2 nitroglycerin [Nitrostat] 0.4 mg Tablet, Sublingual 0.4 mg sublingual PRN PRN (Reason: chest pain) Qty: 1 RF: 0 metoprolol tartrate 25 mg Tablet 25 mg PO BID Qty: 30 RF: 2 prasugrel [Effient] 10 mg Tablet 10 mg PO QAM Qty: 30 RF: 2 pantoprazole 40 mg tablet,delayed release (DR/EC) 40 mg PO DAILY Qty: 30 RF: 2 Discontinued Prilosec OTC 20 mg Tablet,Delayed Release (Dr/Ec) 20 mg PO DAILY RF: 0 Discharge Orders: Discharge Order (Routine); Ordered 05/19/19 Ordered By: Claudia Armstrong/Other Patient Handouts: Heart Attack Dc, Nitroglycerin Sublingual tablet Admission Data Admit Date/Time: 05/18/19 09:31 Attending Provider: Jaxson Bianchi Admit Provider: Byron Trevzio Primary Care Provider: PCP,NO Other Providers: Jaxson Bianchi
== END 2019-05-19 16:29 | disposition home or self-care (01) | DRG 247 ==
LOC: ED 06:29 → SUATTDRO 09:31 → 2E 09:31 → CC 10:10

== ENCOUNTER 2021-05-28 09:50 | Observation (INO) ==
[2021-05-28] MEDS ORDERED: LIDO/EPINEPHRINE/SOD BICARB 20 ML VIAL INFIL ONE (10:17)
--- NOTE | 2021-05-28 10:20 | Emergency Department Note ---
History of Present Illness General Chief complaint: Bleeding Stated complaint: BLEEDING FROM TEETH EXTRATIONS Time Seen by Provider: 05/28/21 10:01 History of Present Illness This is an 80-year-old male that presents to the emergency department via EMS with complaints of "bleeding from teeth extraction site". The patient notes that he takes prasugrel as well as aspirin. He underwent dental extraction yesterday around 10 AM. He was doing well and then around 5 PM yesterday began with bleeding from the extraction sites. Patient notes continued bleeding therefore EMS was summoned earlier today. Per EMS they believe that about 500 mL of blood was on scene absorbed up into towels and such. He was found to be initially hypotensive therefore was given normal saline with improvement. The patient denies any true pain at this time. No chest pain, shortness of breath or headache. He notes some very mild lightheadedness. He denies any previous issues with this. The dental extraction was performed at [facility]. Home Medications Medication Instructions Recorded Confirmed Type aspirin 81 mg tablet,delayed 81 mg PO QAM #30 tab 08/22/19 05/28/21 Rx release (Ecotrin Low Strength) nitroglycerin 0.4 mg sublingual 0.4 mg SUBLINGUAL PRN PRN #1 btl 06/12/20 05/28/21 Rx tablet (Nitrostat) prasugrel 10 mg tablet (Effient) 10 mg PO QAM #30 tab 08/14/20 05/28/21 Rx pantoprazole 40 mg tablet,delayed 40 mg PO QAM #90 tab 08/28/20 05/28/21 Rx release timolol 0.5 % eye drops 1 drp OPB BID 12/18/20 05/28/21 History cholecalciferol (vitamin D3) 25 25 mcg PO QDD 01/08/21 05/28/21 History mcg (1,000 unit) capsule (Vitamin D3) bicalutamide 50 mg tablet (Casodex) 50 mg PO TID #90 tab 02/07/21 05/28/21 Rx metoprolol tartrate 25 mg tablet 25 mg PO BID #180 tab 02/21/21 05/28/21 Rx atorvastatin 40 mg tablet 80 mg PO QAM #180 tab 03/11/21 05/28/21 Rx lisinopril 20 mg tablet 20 mg PO QAM #30 tab 03/27/21 05/28/21 Rx latanoprost 0.005 % eye drops 1 drp OPB HS 05/28/21 05/28/21 History Allergies Allergy/AdvReac Type Severity Reaction Status Date / Time No Known Drug Allergies Allergy Verified 05/28/21 11:34 Past Med/Surg History Medical History CAD (coronary artery disease) Follows with Dr. 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 Sauer monitoring Surgical History History of cardiac cath 05/2019 - [facility] - [place] - 2 stents History of colonoscopy History of heart artery stent x2 (2018) History of lithotripsy History of surgery on arm RIGHT ARM >FOR BREAK WITH METAL PLATE Hx of knee surgery LEFT KNEE > 2 NAILS Family History Family/Other Prostate cancer Self Myocardial infarction Self Mother Congestive heart failure Other No significant family history Denies family history of Ovarian cancer Breast cancer Colorectal cancer Social History Smoking Status: Former smoker Tobacco Type: Cigarettes Second Hand Exposure: No; Hx Alcohol Use: No Hx Substance Use: No Preferred Language: Honduran Communication Ability: Effective Pediatric Lpn Required: No Beliefs That Will Affect Care: None marital status: Current Living Situation: Alone current occupational status: retired Feels Safe at Home: Yes Dental Care, Regularly: No Seatbelt Use: always Sunscreen Use: Yes Assistive Devices: Glasses Review of Systems A total of 10 systems reviewed and were otherwise negative Physical Exam Vital Signs Vital Signs - 24 hr 05/28/21 09:42 05/28/21 09:58 05/28/21 10:00 Pulse Rate 87 80 81 Pulse Rate [Apical] Pulse Rate from SpO2 Sensor 79 85 Respiratory Rate 18 14 22 Respiratory Depth Normal Blood Pressure 120/66 Blood Pressure [Right Arm] Blood Pressure Mean 84 Blood Pressure Mean [Right Arm] Pulse Oximetry 98 98 Oxygen Delivery Method Room Air Oxygen Flow Rate Sepsis Recent Fever Within 48 Hours No Sepsis New/Unexplained Change in Mental Status No Sepsis Action Taken by Nursing No Action Required 05/28/21 10:13 05/28/21 10:30 05/28/21 11:00 Pulse Rate 88 88 76 Pulse Rate [Apical] Pulse Rate from SpO2 Sensor 88 Respiratory Rate 18 16 14 Respiratory Depth Blood Pressure Blood Pressure [Right Arm] Blood Pressure Mean Blood Pressure Mean [Right Arm] Pulse Oximetry 98 96 Oxygen Delivery Method Room Air Oxygen Flow Rate Sepsis Recent Fever Within 48 Hours Sepsis New/Unexplained Change in Mental Status Sepsis Action Taken by Nursing 05/28/21 11:30 05/28/21 12:00 05/28/21 12:30 Pulse Rate 88 85 84 Pulse Rate [Apical] Pulse Rate from SpO2 Sensor 89 82 85 Respiratory Rate 17 20 14 Respiratory Depth Blood Pressure Blood Pressure [Right Arm] Blood Pressure Mean Blood Pressure Mean [Right Arm] Pulse Oximetry 96 94 96 Oxygen Delivery Method Oxygen Flow Rate Sepsis Recent Fever Within 48 Hours Sepsis New/Unexplained Change in Mental Status Sepsis Action Taken by Nursing 05/28/21 13:00 05/28/21 13:06 05/28/21 13:33 Pulse Rate 83 85 Pulse Rate [Apical] Pulse Rate from SpO2 Sensor 84 Respiratory Rate 20 18 Respiratory Depth Blood Pressure 130/69 Blood Pressure [Right Arm] Blood Pressure Mean Blood Pressure Mean [Right Arm] Pulse Oximetry 96 94 82 L Oxygen Delivery Method Room Air Oxygen Flow Rate Sepsis Recent Fever Within 48 Hours Sepsis New/Unexplained Change in Mental Status Sepsis Action Taken by Nursing 05/28/21 13:43 05/28/21 13:45 05/28/21 14:00 Pulse Rate 66 Pulse Rate [Apical] 63 Pulse Rate from SpO2 Sensor 67 Respiratory Rate 18 14 Respiratory Depth Blood Pressure 126/59 L Blood Pressure [Right Arm] 118/69 Blood Pressure Mean 81 Blood Pressure Mean [Right Arm] 85 Pulse Oximetry 97 95 Oxygen Delivery Method Nasal Cannula Nasal Cannula Oxygen Flow Rate 3 3 Sepsis Recent Fever Within 48 Hours Sepsis New/Unexplained Change in Mental Status Sepsis Action Taken by Nursing 05/28/21 14:30 05/28/21 15:00 Pulse Rate 74 69 Pulse Rate [Apical] Pulse Rate from SpO2 Sensor 69 69 Respiratory Rate 16 16 Respiratory Depth Blood Pressure 124/63 144/72 H Blood Pressure [Right Arm] Blood Pressure Mean 83 96 Blood Pressure Mean [Right Arm] Pulse Oximetry 96 100 Oxygen Delivery Method Oxygen Flow Rate Sepsis Recent Fever Within 48 Hours Sepsis New/Unexplained Change in Mental Status Sepsis Action Taken by Nursing VITAL SIGNS - Vital signs and nursing notes were reviewed. Stable and afebrile. GENERAL -80-year-old male appearing his stated age who is in no acute distress. Communicates well with provider and answers questions appropriately. SKIN - Without rashes. No meningeal or petechial rash. Small amount of bruisi ng to the left side of the face just superior to the left upper lip region. No break in the integument. HEAD - NC/AT. EYES - PERRL with EOMI bilaterally. Sclera anicteric. Palpebral conjunctiva pink and moist with no injection noted. MOUTH/OROPHARYNX - Without perioral cyanosis. Buccal mucosa pink and moist and without leukoplakia. Tongue midline with equal elevation of palate bilaterally. No tonsillar hypertrophy, erythema, or exudates noted. Bleeding is noted from the left anterior superior dentition that reveals evidence of recent extraction. NECK - Neck with FROM. No nuchal rigidity. LUNGS -clear to auscultation. CARDIAC -regular rate and rhythm. EXTREMITIES - +5/5 strength noted in UE/LE bilaterally. NEUROLOGIC - Cranial nerves II through XII grossly intact. PSYCH - A&O, and cooperates fully with examiner. Pt is very pleasant and interacts well with examiner. Course Administered Medications Discontinued Medications Sodium Chloride (Nss 1000ml) 1,000 mls @ 999 mls/hr IV .Q1H1M ONE Stop: 05/28/21 14:36 Last Admin: 05/28/21 13:42 Dose: 999 mls/hr Documented by: [id number] Lidocaine/Epinephrine (Lido/Epinephrine/Sod Bicarb 20 Ml Vial) 20 ml INFIL NOW ONE Stop: 05/28/21 10:18 Last Admin: 05/28/21 13:01 Dose: 20 ml Documented by: [id number] Tranexamic Acid (Txa 10% Non-Iv Routes 100 Mg/Ml Vial) 500 mg TOP ONE ONE Stop: 05/28/21 10:31 Last Admin: 05/28/21 13:02 Dose: 500 mg Documented by: [id number] Medical Decision Making Laboratory Data Result diagrams: 05/28/21 13:40 05/28/21 10:17 Lab Results 05/28/21 05/28/21 05/28/21 Range/Units 10:15 10:17 10:17 WBC 9.94 (4.8-10.8) K/uL RBC 3.56 L (4.7-6.1) M/uL Hgb 10.6 L (14.0-18.0) g/dL POC Hgb 9.9 L (14.0-18.0) g/dl Hct 31.3 L (42-52) % POC Hct 29 L (42-52) % MCV 87.9 (80-100) fL MCH 29.8 (25-34) pg MCHC 33.9 (32-36) g/dL RDW Std Deviation 45.0 (36.4-46.3) fL RDW Coeff of Paulo 13.9 (11.5-14.5) % Plt Count 212 (130-400) K/uL MPV 10.2 (7.4-10.4) fL Immature Gran % (Auto) 0.5 % Neut % (Auto) 74.6 % Lymph % (Auto) 11.5 % Coleman % (Auto) 12.8 % Eos % (Auto) 0.5 % Baso % (Auto) 0.1 % Neut # (Auto) 7.42 H (1.4-6.5) K/uL Lymph # (Auto) 1.14 L (1.2-3.4) K/uL Coleman # (Auto) 1.27 H (0.11-0.59) K/uL Eos # (Auto) 0.05 (0-0.5) K/uL Baso # (Auto) 0.01 (0-0.2) K/uL Immature Gran # (Auto) 0.05 H (0.00-0.02) K/uL PT 10.3 (9.0-12.0) Seconds INR 1.0 (0.9-1.1) APTT 24.2 (21.0-31.0) Seconds PTT Ratio 0.9 POC Sodium 142 (135-144) mmol/L Sodium (136-145) mmol/L POC Potassium 4.0 (3.3-5.0) mmol/L Potassium (3.5-5.1) mmol/L POC Chloride 107 (101-112) mmol/L Chloride (98-107) mmol/L Carbon Dioxide (21-32) mmol/L POC Total CO2 23 L (24-31) mmol/L Anion Gap (3-11) POC Anion Gap 17.0 (16-25) mmol/L POC BUN 32 H (7-18) mg/dl BUN (7-18) mg/dl Creatinine (0.6-1.4) mg/dl POC Creatinine 0.7 (0.6-1.3) mg/dl Est Cr Clr Drug Dosing Est GFR ( Amer) ml/min Est GFR (Non-Af Amer) ml/min BUN/Creatinine Ratio (10-20) Glucose (70-99) mg/dl POC Glucose (70-99) mg/dl POC Glucose (other) 130 H (70-99) mg/dl Calcium (8.5-10.1) mg/dl POC Ioniz Calcium Dima 1.09 L (1.12-1.32) mmol/l Total Bilirubin (0.2-1) mg/dl AST (15-37) U/L ALT (12-78) Alkaline Phosphatase (45-117) U/L Total Protein (6.4-8.2) gm/dl Albumin (3.4-5.0) gm/dl Globulin (2.5-4.0) gm/dl Albumin/Globulin Ratio (0.9-2) SARS-CoV-2, RNA, NAAT (NEGATIVE) Blood Type Antibody Screen 05/28/21 05/28/21 05/28/21 Range/Units 10:17 10:34 13:36 WBC (4.8-10.8) K/uL RBC (4.7-6.1) M/uL Hgb (14.0-18.0) g/dL POC Hgb (14.0-18.0) g/dl Hct (42-52) % POC Hct (42-52) % MCV (80-100) fL MCH (25-34) pg MCHC (32-36) g/dL RDW Std Deviation (36.4-46.3) fL RDW Coeff of Paulo (11.5-14.5) % Plt Count (130-400) K/uL MPV (7.4-10.4) fL Immature Gran % (Auto) % Neut % (Auto) % Lymph % (Auto) % Coleman % (Auto) % Eos % (Auto) % Baso % (Auto) % Neut # (Auto) (1.4-6.5) K/uL Lymph # (Auto) (1.2-3.4) K/uL Coleman # (Auto) (0.11-0.59) K/uL Eos # (Auto) (0-0.5) K/uL Baso # (Auto) (0-0.2) K/uL Immature Gran # (Auto) (0.00-0.02) K/uL PT (9.0-12.0) Seconds INR (0.9-1.1) APTT (21.0-31.0) Seconds PTT Ratio POC Sodium (135-144) mmol/L Sodium 142 (136-145) mmol/L POC Potassium (3.3-5.0) mmol/L Potassium 4.1 (3.5-5.1) mmol/L POC Chloride (101-112) mmol/L Chloride 111 H (98-107) mmol/L Carbon Dioxide 24 (21-32) mmol/L POC Total CO2 (24-31) mmol/L Anion Gap 7.0 (3-11) POC Anion Gap (16-25) mmol/L POC BUN (7-18) mg/dl BUN 32 H (7-18) mg/dl Creatinine 0.86 (0.6-1.4) mg/dl POC Creatinine (0.6-1.3) mg/dl Est Cr Clr Drug Dosing Not Reportable Est GFR ( Amer) 94.3 ml/min Est GFR (Non-Af Amer) 81.3 ml/min BUN/Creatinine Ratio 37.0 H (10-20) Glucose 127 H (70-99) mg/dl POC Glucose 124 H (70-99) mg/dl POC Glucose (other) (70-99) mg/dl Calcium 8.6 (8.5-10.1) mg/dl POC Ioniz Calcium Dima (1.12-1.32) mmol/l Total Bilirubin 0.8 (0.2-1) mg/dl AST 12 L (15-37) U/L ALT 15 (12-78) Alkaline Phosphatase 70 (45-117) U/L Total Protein 7.0 (6.4-8.2) gm/dl Albumin 3.1 L (3.4-5.0) gm/dl Globulin 3.9 (2.5-4.0) gm/dl Albumin/Globulin Ratio 0.8 L (0.9-2) SARS-CoV-2, RNA, NAAT (NEGATIVE) Blood Type B Positive Antibody Screen NEGATIVE 05/28/21 05/28/21 Range/Units 13:40 13:50 WBC 11.63 H (4.8-10.8) K/uL RBC 3.55 L (4.7-6.1) M/uL Hgb 10.5 L (14.0-18.0) g/dL POC Hgb (14.0-18.0) g/dl Hct 30.8 L (42-52) % POC Hct (42-52) % MCV 86.8 (80-100) fL MCH 29.6 (25-34) pg MCHC 34.1 (32-36) g/dL RDW Std Deviation 44.1 (36.4-46.3) fL RDW Coeff of Paulo 13.8 (11.5-14.5) % Plt Count 235 (130-400) K/uL MPV 10.0 (7.4-10.4) fL Immature Gran % (Auto) % Neut % (Auto) % Lymph % (Auto) % Coleman % (Auto) % Eos % (Auto) % Baso % (Auto) % Neut # (Auto) (1.4-6.5) K/uL Lymph # (Auto) (1.2-3.4) K/uL Coleman # (Auto) (0.11-0.59) K/uL Eos # (Auto) (0-0.5) K/uL Baso # (Auto) (0-0.2) K/uL Immature Gran # (Auto) (0.00-0.02) K/uL PT (9.0-12.0) Seconds INR (0.9-1.1) APTT (21.0-31.0) Seconds PTT Ratio POC Sodium (135-144) mmol/L Sodium (136-145) mmol/L POC Potassium (3.3-5.0) mmol/L Potassium (3.5-5.1) mmol/L POC Chloride (101-112) mmol/L Chloride (98-107) mmol/L Carbon Dioxide (21-32) mmol/L POC Total CO2 (24-31) mmol/L Anion Gap (3-11) POC Anion Gap (16-25) mmol/L POC BUN (7-18) mg/dl BUN (7-18) mg/dl Creatinine (0.6-1.4) mg/dl POC Creatinine (0.6-1.3) mg/dl Est Cr Clr Drug Dosing Est GFR ( Amer) ml/min Est GFR (Non-Af Amer) ml/min BUN/Creatinine Ratio (10-20) Glucose (70-99) mg/dl POC Glucose (70-99) mg/dl POC Glucose (other) (70-99) mg/dl Calcium (8.5-10.1) mg/dl POC Ioniz Calcium Dima (1.12-1.32) mmol/l Total Bilirubin (0.2-1) mg/dl AST (15-37) U/L ALT (12-78) Alkaline Phosphatase (45-117) U/L Total Protein (6.4-8.2) gm/dl Albumin (3.4-5.0) gm/dl Globulin (2.5-4.0) gm/dl Albumin/Globulin Ratio (0.9-2) SARS-CoV-2, RNA, NAAT POSITIVE A* (NEGATIVE) Blood Type Antibody Screen Imaging Data Radiologist's Impression: Chest X-Ray 05/28/21 13:39 XR chest 1V portable CLINICAL HISTORY: sob TECHNIQUE: Single frontal radiograph of the chest was obtained. Comparison: Comparison is made to chest one view 05/18/2019 FINDINGS: No lines and tubes are seen. The cardiomediastinal silhouette is normal. The lungs are clear. No evidence of pleural effusion or pneumothorax. IMPRESSION: No acute chest disease. ACT 112: Negative or not required by law. Electronically signed by: Perez Mireles M.D. 05/28/2021 2:[address] 05/28/21 14:09 CT head/brain wo con CLINICAL HISTORY: syncope Technique: Contiguous axial CT images of the head were acquired from the base of the skull to the vertex without intravenous contrast administration. Images were viewed in brain, subdural and bone windows. Automated dose lowering techniques and/or adjustment according to patient size were utilized for this exam. Comparison: None available at the time of this dictation. Findings: The ventricles, basal cisterns, and cerebral sulci are normal. There is no acute intracranial hemorrhage or evidence of acute territorial infarction. Neither mass effect, shift of the midline structures, nor abnormal extra-axial fluid collections are shown. Imaged portions of the paranasal sinuses and mastoid air cells are clear. The orbits appear normal. There are no acute fractures of the calvaria or scalp swelling. Impression: No acute intracranial hemorrhage, no evidence of acute territorial infarction or other acute intracranial disease process. ACT 112: Negative or not required by law. Electronically signed by: Perez Mireles M.D. 05/28/2021 2:49 PM MDM Narrative Patient was seen and evaluated as above in room C07. Review was performed of nursing notes and vital signs. I did review pertinent previous visits and pa jaynent history. After obtaining a thorough history and physical examination the above work up was performed. Patient presents to us today with bleeding from the dental extraction sites. Clinically he appears well. There is bleeding actively on my examination from the dentition extraction sites on the anterior superior left dental region. Options of care were discussed with the patient. IV access was established. Labs were drawn. Anemia noted compared to previous with [id number] hemoglob in being 9.9 and lab hemoglobin being 10.6. This is decreased compared to 13.9. No emergent metabolic disturbance. Please refer to the ED attending note regarding wound management. The patient did undergo lidocaine with epinephrine injections around the site, suturing, as well as a gauze application of TXA. This provided excellent hemostasis. Patient was watched here them for quite some time without any further bleeding. He was able tolerate p.o. without difficulty. He was feeling well. At this time I do believe he is stable to be discharged to follow-up in the outpatient setting. I discussed the use of Effient and aspirin with the patient's trimmer operator, Dr. Trevizo. At this time we will hold the Effient until the bleeding risk is felt to be decreased. We will continue the aspirin. He will see Dr. Trevizo in follow-up. Patient is to follow-up with his dentist. Patient is to refrain from using the partial dental hardware that was also provided to him yesterday as I felt that this was likely contributing to some of the irritation at the extraction site. I then was called by the charge nurse as when the patient was discharged and waiting in the waiting room he felt dizzy, lightheaded and there was a potential syncopal event. Patient notes that he felt lightheaded when he sat up. A stroke alert was called by staff in the waiting room noting that he slumped to the right however will note that on examination there is no evidence of stroke. I feel the patient likely experienced a syncopal event. He was brought to a 1. Patient was seen by one of the ED attending physicians as he was brought to room A1 and a stroke alert was canceled noting no deficits or evidence of stroke. With the patient having bleeding earlier a repeat hemoglobin was performed. There was no significant change in the hemoglobin compared to previous. Covid testing was found to be surprisingly positive. Chest x-ray and CT scan of the head overall reassuring. At this time given the patient's syncope in the setting of COVID-19, recent bleeding, blood loss it is felt that further eval uation and management in the inpatient setting is warranted. Case discussed with the hospitalist. Please refer to further documentation regarding his stay. While in the department, I personally reevaluated the patient several times and each time the patient was found to be resting comfortably. Case was discussed with the attending physician. EKG was reviewed by myself and found to be Normal Sinus Rhythm at a rate of 83 beats per minute and per my interpretation reveals no ST elevation. QTc 453. QRS 60. This was compared to EKG of May 18, 2019 and no significant change was found. An order was placed for continuous cardiac monitoring. The monitor shows a rate of 69 with sinus rhythm. GCS: 15 In the evaluation and treatment of this patient the following differential diagnoses were entertained: Hemorrhage, syncope, TIA, CVA, arrhythmia, blood loss anemia, among others. Impression & Plan Post-op bleeding, Syncope Discharge Plan Visit Data Chief Complaint: Bleeding Stated Complaint: BLEEDING FROM TEETH EXTRATIONS ED Provider: Cammy Underwood ED Midlevel Provider: George Davis Discharge Problem: Post-op bleeding, Syncope Patient Disposition: Admitted As Inpatient Condition: Good Discharge Instructions Interventions: ED Discharge Assessment Last Done: 05/28/21 13:06 Forms Stand Alone Forms: [facility], [facility] Emergency Department, Im portant Visit Information Prescriptions Prescriptions: No Action aspirin [Ecotrin Low Strength] 81 mg tablet,delayed release (DR/EC) 81 mg PO QAM Qty: 30 RF: 5 prasugrel [Effient] 10 mg tablet 10 mg PO QAM Qty: 30 RF: 11 pantoprazole 40 mg tablet,delayed release (DR/EC) 40 mg PO QAM Qty: 90 RF: 3 bicalutamide [Casodex] 50 mg tablet 50 mg PO TID Qty: 90 RF: 6 metoprolol tartrate 25 mg tablet 25 mg PO BID Qty: 180 RF: 1 atorvastatin 40 mg tablet 80 mg PO QAM Qty: 180 RF: 1 lisinopril 20 mg tablet 20 mg PO QAM Qty: 30 RF: 5 timolol 0.5 % drops 1 drp OPB BID RF: 0 nitroglycerin [Nitrostat] 0.4 mg tablet, sublingual 0.4 mg sublingual PRN PRN (Reason: chest pain) Qty: 1 RF: 0 cholecalciferol (vitamin D3) [Vitamin D3] 25 mcg (1,000 unit) Capsule 25 mcg PO QDD RF: 0 latanoprost 0.005 % drops 1 drp OPB HS RF: 0 Referrals Referrals: Byron Trevizo MD [Physician] - Elizabeth Stock MD [Primary Care Provider] -
[2021-05-28 10:23] LABS: Basophils # (auto) 0.01 K/uL (0-0.2); Basophils % (auto) 0.1 %; Eosinophils # (auto) 0.05 K/uL (0-0.5); Eosinophils % (auto) 0.5 %; Hematocrit (blood only) 31.3 % (42-52); Hemoglobin 10.6 g/dL (14.0-18.0); Immature Granulocytes # (auto) 0.05 K/uL (0.00-0.02); Immature Granulocytes % (auto) 0.5 %; Lymphocytes # (auto) 1.14 K/uL (1.2-3.4); Lymphocytes % (auto) 11.5 %; Mean Corpuscular Hemoglobin 29.8 pg (25-34); Mean Corpuscular Hgb Conc 33.9 g/dL (32-36); Mean Corpuscular Volume 87.9 fL (80-100); Mean Platelet Volume 10.2 fL (7.4-10.4); Monocytes # (auto) 1.27 K/uL (0.11-0.59); Monocytes % (auto) 12.8 %; Neutrophils # (auto) 7.42 K/uL (1.4-6.5); Neutrophils % (auto) 74.6 %; Platelet Count 212 K/uL (130-400); RDW Coefficient of Variation 13.9 % (11.5-14.5); Red Blood Count 3.56 M/uL (4.7-6.1); White Blood Count 9.94 K/uL (4.8-10.8)
[2021-05-28 10:27] LABS: iSTAT Creatinine 0.7 mg/dl (0.6-1.3); iSTAT Hemoglobin 9.9 g/dl (14.0-18.0); iSTAT Ionized Calcium 1.09 mmol/l (1.12-1.32)
[2021-05-28] MEDS ORDERED: TXA 10% Non-IV Routes 100 MG/ML VIAL TOP ONE (10:30)
[2021-05-28 10:32] LABS: Partial Thromboplastin Ratio 0.9; Partial Thromboplastin Time 24.2 Seconds (21.0-31.0); Prothrombin Time 10.3 Seconds (9.0-12.0)
[2021-05-28 10:43] LABS: Alanine Aminotransferase 15 (12-78); Albumin Level 3.1 gm/dl (3.4-5.0); Aspartate Aminotransferase 12 U/L (15-37); Blood Urea Nitrogen 32 mg/dl (7-18); Calcium 8.6 mg/dl (8.5-10.1); Carbon Dioxide 24 mmol/L (21-32); Chloride 111 mmol/L (98-107); Est GFR (African American) 94.3 ml/min; Est GFR (Non-African American) 81.3 ml/min; Glucose 127 mg/dl (70-99); Potassium 4.1 mmol/L (3.5-5.1); Sodium 142 mmol/L (136-145)
[2021-05-28 10:45] LABS: Albumin Globulin Ratio 0.8 (0.9-2); Alkaline Phosphatase 70 U/L (45-117); Bilirubin,Total 0.8 mg/dl (0.2-1); Globulin 3.9 gm/dl (2.5-4.0)
[2021-05-28] MEDS ORDERED: SODIUM CHLORIDE 0.9% 1000ML 1,000 ML IV ONE (13:36)
[2021-05-28 13:48] LABS: Hematocrit (blood only) 30.8 % (42-52); Hemoglobin 10.5 g/dL (14.0-18.0); Mean Corpuscular Hemoglobin 29.6 pg (25-34); Mean Corpuscular Hgb Conc 34.1 g/dL (32-36); Mean Corpuscular Volume 86.8 fL (80-100); Platelet Count 235 K/uL (130-400); RDW Coefficient of Variation 13.8 % (11.5-14.5); RDW Standard Deviation 44.1 fL (36.4-46.3); Red Blood Count 3.55 M/uL (4.7-6.1); White Blood Count 11.63 K/uL (4.8-10.8)
--- NOTE | 2021-05-28 13:55 | Emergency Department Note ---
ED Visit Note A stroke alert had been called in the waiting room, I went to see the patient emergently in room A1. This patient had been in our department for dental issues. He had bleeding from some dental extractions. As per the nursing staff, as the patient was being discharged, he slumped over in his wheelchair and appeared pale. They called a stroke alert. I talked to the patient. He had no chest pain or shortness of breath. He had felt faint and weak and sweaty. He had felt like his blood pressure had dropped. He now already feels a bit better. No current one-sided weakness, no difficulty with speech, no facial droop. On exam, the patient was slightly sweaty and pale. He had a regular rhythm without murmurs. He had no focal neurologic findings, no facial droop or speech slur. An EKG, CBC and chest x-ray were ordered. He was placed in the monitor worker. A stroke alert was canceled. At this point, the patient's case is being assumed by the initial physician and initial MANNY that had been involved in his care. .
--- NOTE | 2021-05-28 14:22 | XRay Report ---
XR chest 1V portable CLINICAL HISTORY: sob TECHNIQUE: Single frontal radiograph of the chest was obtained. Comparison: Comparison is made to chest one view 05/18/2019 FINDINGS: No lines and tubes are seen. The cardiomediastinal silhouette is normal. The lungs are clear. No evid ence of pleural effusion or pneumothorax. IMPRESSION: No acute chest disease. ACT 112: Negative or not required by law. Electronically signed by: Perez Mireles M.D. 05/28/2021 2:20 PM
--- NOTE | 2021-05-28 14:31 | History & Physical Report ---
Date of Service May 28, 2021 Assessment & Plan (1) Syncope: Plan: Suspect vasovagal in setting of acute blood loss. Monitor on telemetry overnight for arrhythmia. (2) Post-op bleeding: Plan: Initial presentation for post op bleeding. Dissolvable sutures placed in the ER. Repeat CBC in AM Prior cardiac stent placed in 2019 - can discontinue Prasugrel indefinitely (follow up with cardiology as unclear why he is still on this) and aspirin until bleeding resolved (3) SARS-CoV-2 positive: Plan: Either false positive, asymptomatic or presymptomatic. Regardless should be on COVID isolation but not on COVID villafana. Suspect will be discharged tomorrow therefore no need to retest. (4) Hypertension: Plan: Hold lisinopril in setting of syncope as above, continue metoprolol for rate control (5) GERD (gastroesophageal reflux disease): Plan: Continue pantoprazole 40mg PO daily (6) CAD (coronary artery disease): Plan: Mid RCA x2 overlapping BROCK placed in 05/2019 Holding aspirin and prasugrel for bleeding Holding lisinopril due to syncope (suspected vasovagal) Continue metoprolol and atorvastatin Plan: VTE Prophylaxis - chemical contraindicated in setting of recent bleed as above Diet - full liquids Disposition - observation status to med/tele Admission and Anticipated Discharge Date Admission Date: May 28, 2021 History of Present Illness Chief Complaint: Syncope, post op bleeding Primary Care Provider: Elizabeth Stock MD Boo Alfredo is an 80 year old male who presents to the ER with excessive bleeding from tooth extraction site. He reports having his tow teeth 10 and 11 extracted yesterday. Today he woke up in a pool of blood. The bleeding was stopped in the ER and gum area sutured. He was going to be discharged and went to the waiting room at which time he had a syncopal episodes in the waiting room as he was being discharged. No change in his hemoglobin from earlier. He takes lisinopril and metoprolol for his blood pressure but reports not taking these today. He currently feels back to his baseline self. In the ER he was also tested routinely for SARS COV-2 which was subsequently positive. He denies any symptoms of this. He is vaccinated for COVID back in August/September [employer], no booster. Due to the syncopal event he was referred to medicine for admission and ongoing management of this. Allergies Allergy/AdvReac Type Severity Reaction Status Date / Time No Known Drug Allergies Allergy Verified 05/28/21 11:34 Home Medications Medication Instructions Recorded Confirmed Type aspirin 81 mg tablet,delayed 81 mg PO QAM #30 tab 08/22/19 05/28/21 Rx release (Ecotrin Low Strength) nitroglycerin 0.4 mg sublingual 0.4 mg SUBLINGUAL PRN PRN #1 btl 06/12/20 05/28/21 Rx tablet (Nitrostat) prasugrel 10 mg tablet (Effient) 10 mg PO QAM #30 tab 08/14/20 05/28/21 Rx pantoprazole 40 mg tablet,delayed 40 mg PO QAM #90 tab 08/28/20 05/28/21 Rx release timolol 0.5 % eye drops 1 drp OPB BID 12/18/20 05/28/21 History cholecalciferol (vitamin D3) 25 25 mcg PO QDD 01/08/21 05/28/21 History mcg (1,000 unit) capsule (Vitamin D3) bicalutamide 50 mg tablet (Casodex) 50 mg PO TID #90 tab 02/07/21 05/28/21 Rx metoprolol tartrate 25 mg tablet 25 mg PO BID #180 tab 02/21/21 05/28/21 Rx atorvastatin 40 mg tablet 80 mg PO QAM #180 tab 03/11/21 05/28/21 Rx lisinopril 20 mg tablet 20 mg PO QAM #30 tab 03/27/21 05/28/21 Rx latanoprost 0.005 % eye drops 1 drp OPB HS 05/28/21 05/28/21 History Past Med/Surg History Medical History (Updated 05/29/21 @ 07:27 by Sebastian Claros MD) CAD (coronary artery disease) Follows with Dr. Trevizo GERD (gastroesophageal reflux disease) Hearing deficit History of depression History of kidney stones Hx of Clostridium difficile infection IN 2006 Hx of hepatitis IN 1970'S > UNSURE WHICH TYPE Hyperlipidemia Hypertension Myocardial Infarction 05/2019 Prostate cancer DX 1996 > RADIOACTIVE SEEDS Renal lesion Dr. aSuer monitoring Surgical History History of cardiac cath 05/2019 - [facility] - [place] - 2 stents History of colonoscopy History of heart artery stent x2 (2019) History of lithotripsy History of surgery on arm RIGHT ARM >FOR BREAK WITH METAL PLATE Hx of knee surgery LEFT KNEE > 2 NAILS Family History Family/Other Prostate cancer Self Myocardial infarction Self Mother Congestive heart failure Other No significant family history Denies family history of Ovarian cancer Breast cancer Colorectal cancer Social History Smoking Status: Former smoker Tobacco Type: Cigarettes Second Hand Exposure: No; Hx Alcohol Use: No Hx Substance Use: No Preferred Language: Slovenian Communication Ability: Effective Lead Scientist Required: No Beliefs That Will Affect Care: None marital status: Current Living Situation: Alone current occupational status: retired Feels Safe at Home: Yes Dental Care, Regularly: No Seatbelt Use: always Sunscreen Use: Yes Assistive Devices: Glasses Review of Systems Review of Systems: All systems reviewed & are unremarkable except as noted in HPI & below Physical Exam Constitutional: WD/WN, vitals as above Eyes: PERRL, conjunctivae normal, anicteric sclerae ENMT: 10 and 11 tooth extraction seen, sutures in place, no current bleeding Respiratory: normal respiratory effort, lungs clear to auscultation Cardiovascular: RRR, no murmur, no edema Gastrointestinal (Abdomen): normal bowel sounds, soft, nontender, no hepatosplenomegaly Musculoskeletal: no cyanosis or clubbing, extremities motor strength 5/5 Skin: no rashes, warm and dry Neurologic: moves all extremities and awake; not confused Psychiatric: A+Ox3, euthymic affect Results & Data Results & Data ([facility]) Vital Signs (Past 12 Hours) Vital Signs Pulse Pulse Resp BP BP Pulse Ox 05/28/21 13:43 63 18 118/69 97 05/28/21 13:06 85 18 130/69 94 05/28/21 10:13 88 18 98 05/28/21 09:42 87 18 120/66 Laboratory Results Abnormal lab results 05/28/21 05/28/21 05/28/21 Range/Units 10:15 10:17 10:17 WBC (4.8-10.8) K/uL RBC 3.56 L (4.7-6.1) M/uL Hgb 10.6 L (14.0-18.0) g/dL POC Hgb 9.9 L (14.0-18.0) g/dl Hct 31.3 L (42-52) % POC Hct 29 L (42-52) % Neut # (Auto) 7.42 H (1.4-6.5) K/uL Lymph # (Auto) 1.14 L (1.2-3.4) K/uL [place] # (Auto) 1.27 H (0.11-0.59) K/uL Immature Gran # (Auto) 0.05 H (0.00-0.02) K/uL Chloride 111 H (98-107) mmol/L POC Total CO2 23 L (24-31) mmol/L POC BUN 32 H (7-18) mg/dl BUN 32 H (7-18) mg/dl BUN/Creatinine Ratio 37.0 H (10-20) Glucose 127 H (70-99) mg/dl POC Glucose (70-99) mg/dl POC Glucose (other) 130 H (70-99) mg/dl POC Ioniz Calcium Idma 1.09 L (1.12-1.32) mmol/l AST 12 L (15-37) U/L Albumin 3.1 L (3.4-5.0) gm/dl Albumin/Globulin Ratio 0.8 L (0.9-2) SARS-CoV-2, RNA, NAAT (NEGATIVE) 05/28/21 05/28/21 05/28/21 Range/Units 13:36 13:40 13:50 WBC 11.63 H (4.8-10.8) K/uL RBC 3.55 L (4.7-6.1) M/uL Hgb 10.5 L (14.0-18.0) g/dL POC Hgb (14.0-18.0) g/dl Hct 30.8 L (42-52) % POC Hct (42-52) % Neut # (Auto) (1.4-6.5) K/uL Lymph # (Auto) (1.2-3.4) K/uL [place] # (Auto) (0.11-0.59) K/uL Immature Gran # (Auto) (0.00-0.02) K/uL Chloride (98-107) mmol/L POC Total CO2 (24-31) mmol/L POC BUN (7-18) mg/dl BUN (7-18) mg/dl BUN/Creatinine Ratio (10-20) Glucose (70-99) mg/dl POC Glucose 124 H (70-99) mg/dl POC Glucose (other) (70-99) mg/dl POC Ioniz Calcium Dima (1.12-1.32) mmol/l AST (15-37) U/L Albumin (3.4-5.0) gm/dl Albumin/Globulin Ratio (0.9-2) SARS-CoV-2, RNA, NAAT POSITIVE A* (NEGATIVE) Diagnostic Findings XR chest 1V portable CLINICAL HISTORY: sob � TECHNIQUE: Single frontal radiograph of the chest was obtained.� Comparison: Comparison is made to chest one view 05/18/2019 FINDINGS: No lines and tubes are seen. The cardiomediastinal silhouette is normal. The lungs are clear. No evidence of pleural effusion or pneumothorax. IMPRESSION: No acute chest disease. CT head/brain wo con CLINICAL HISTORY: syncope Technique: Contiguous axial CT images of the head were acquired from the base of the skull to the vertex without intravenous contrast administration. Images were viewed in brain, subdural and bone windows. Automated dose lowering techniques and/or adjustment according to patient size were utilized for this exam. Comparison: None available at the time of this dictation. Findings: The ventricles, basal cisterns, and cerebral sulci are normal. There is no acute intracranial hemorrhage or evidence of acute territorial infarction. Neither mass effect, shift of the midline structures, nor abnormal extra-axial fluid collections are shown.� Imaged portions of the paranasal sinuses and mastoid air cells are clear.� The orbits appear normal.� There are no acute fractures of the calvaria or scalp swelling. Impression: No acute intracranial hemorrhage, no evidence of acute territorial infarction or other acute intracranial disease process. Medications Administered ER Medications Given: Tranexamic acid 10% 500mg topical Lidocaine 20ml ECG Rate (beats per minute): 83 Rhythm: sinus with SA Findings: no acute ischemic change Comparison ECG Date: from (May 18, 2019) Change: no significant change Code Status & VTE Plan Code Status Full VTE Prophylaxis Plan VTE Prophylaxis will be ordered: No PG Care Time/CCT Total # of Minutes Spent Total Time Spent with Patient: Total time spent is greater than 50% in coordination of care (as documented) at patient's floor/unit and/or counseling patient: Coding Level of Care Code INT OBSERVATION CARE 50M LVL 2 Diagnoses Syncope R55 Post-op bleeding Hypertension I10 GERD (gastroesophageal reflux disease) K21.9 SARS-CoV-2 positive U07.1 CAD (coronary artery disease) I25.10
--- NOTE | 2021-05-28 14:51 | CT Scan Report ---
CT head/brain wo con CLINICAL HISTORY: syncope Technique: Contiguous axial CT images of the head were acquired from the base of the skull to the shekhar santa without intravenous contrast administration. Images were viewed in brain, subdural and bone [facility]. Automated dose lowering techniques and/or adjustment according to patient size were utilized for this exam. Comparison: None available at the time of this dictation. Findings: The ventricles, basal cisterns, and cerebral sulci are normal. There is no acute intracranial hemorrh age or evidence of acute territorial infarction. Neither mass effect, shift of the midline structures , nor abnormal extra-axial fluid collections are shown. Imaged portions of the paranasal sinuses and mastoid air cells are clear. The orbits appear normal. There are no acute fractures of the calvaria or scalp swelling. Impression: No acute intracranial hemorrhage, no evidence of acute territorial infarction or other acute intracra nial disease process. ACT 112: Negative or not required by law. Electronically signed by: Perez Mireles M.D. 05/28/2021 2:49 PM
--- NOTE | 2021-05-28 16:36 | Emergency Department Note ---
ED Visit Note Location: L upper tooth socket/gum bleeding Total length: 0.5cm Complexity: simple Verbal consent was obtained after the risks and benefits were explained, including but not limited to bleeding, scarring, infection, pain, and bone/joint/nerve damage. At this time, the risks of the procedure are less than the risks of NOT performing the procedure. A time out was taken and the correct patient and site identified. The target area was anesthetized with 2 ml of 1% lidocaine with epinephrine. The wound edges were approximated using 5.0, 1-0 sim ple interrupted Chromic gut suture. Hemostasis and excellent approximation was achieved. TXA gauze was applied to the site and the patient was advised to apply pressure. No complications and the patient tolerated the procedure well. I have personally seen and evaluated the patient with the PA. I agree with the diagnosis and management decisions and have been personally involved in the case. Please see George Davis PA-C's notes for further details of the history, physical and visit. .
[2021-05-28] MEDS ORDERED: POLYETHYLENE (MIRALAX) 17 GM PACK PO PRN (18:46)
[2021-05-28] MEDS ORDERED: ONDANSETRON INJ 2 MG/ML 2 ML VIAL IV PRN (18:46)
[2021-05-28] MEDS: BICALUTAMIDE 50 MG TAB PO SCH (21:44)
[2021-05-28] MEDS: METOPROLOL TARTRATE 25 MG TAB PO SCH (21:44)
[2021-05-28] MEDS: TIMOLOL MALEATE 0.5% OP SOLN 5 ML BTL OPB SCH (22:35)
[2021-05-28] MEDS: CHOLECALCIFEROL 1,000 UNITS 25 MCG TAB PO SCH (22:36)
[2021-05-28] MEDS: LATANOPROST 0.005% OP SOLN 2.5 ML BTL OPB SCH (22:39)
[2021-05-29] MEDS: ACETAMINOPHEN 325 MG TAB PO PRN ×3 (03:51→21:50)
[2021-05-29 07:18] LABS: Basophils # (auto) 0.01 K/uL (0-0.2); Basophils % (auto) 0.1 %; Eosinophils # (auto) 0.05 K/uL (0-0.5); Eosinophils % (auto) 0.4 %; Hematocrit (blood only) 25.6 % (42-52); Immature Granulocytes # (auto) 0.06 K/uL (0.00-0.02); Immature Granulocytes % (auto) 0.5 %; Lymphocytes # (auto) 2.02 K/uL (1.2-3.4); Lymphocytes % (auto) 18.1 %; Mean Corpuscular Hemoglobin 30.2 pg (25-34); Mean Corpuscular Hgb Conc 35.2 g/dL (32-36); Mean Corpuscular Volume 85.9 fL (80-100); Mean Platelet Volume 9.7 fL (7.4-10.4); Monocytes # (auto) 2.16 K/uL (0.11-0.59); Monocytes % (auto) 19.4 %; Neutrophils # (auto) 6.84 K/uL (1.4-6.5); Neutrophils % (auto) 61.5 %; Platelet Count 241 K/uL (130-400); RDW Coefficient of Variation 13.8 % (11.5-14.5); RDW Standard Deviation 43.3 fL (36.4-46.3); Red Blood Count 2.98 M/uL (4.7-6.1); White Blood Count 11.14 K/uL (4.8-10.8)
[2021-05-29] MEDS ORDERED: IRON SUCROSE 400 MG in SODIUM CHLORIDE 0.9% 250 ML IV ONE (07:31)
[2021-05-29 07:45] LABS: Blood Urea Nitrogen 25 mg/dl (7-18); Calcium 8.5 mg/dl (8.5-10.1); Carbon Dioxide 22 mmol/L (21-32); Chloride 110 mmol/L (98-107); Est GFR (African American) 85.6 ml/min; Est GFR (Non-African American) 73.8 ml/min; Glucose 103 mg/dl (70-99); Potassium 3.3 mmol/L (3.5-5.1); Sodium 141 mmol/L (136-145)
[2021-05-29] MEDS: PANTOprazole 40 MG TAB PO SCH (08:42)
[2021-05-29] MEDS: ATORVASTATIN 40 MG TAB PO SCH (08:42)
[2021-05-29] MEDS: TIMOLOL MALEATE 0.5% OP SOLN 5 ML BTL OPB SCH ×2 (08:50→21:47)
[2021-05-29] MEDS: BICALUTAMIDE 50 MG TAB PO SCH ×3 (08:50→21:48)
[2021-05-29] MEDS ORDERED: ASPIRIN 81 MG ECTAB PO SCH (09:00)
[2021-05-29] MEDS: METOPROLOL TARTRATE 25 MG TAB PO SCH ×2 (09:03→21:48)
[2021-05-29] MEDS ORDERED: LACTATED RINGER'S 500 ML IV ONE (11:13)
[2021-05-29] MEDS ORDERED: ACETAMINOPHEN 1,000 MG/100 ML VIAL IV STA (14:34)
--- NOTE | 2021-05-29 16:57 | Hospitalist Progress Note ---
Date of Service May 29, 2021 Assessment & Plan (1) Syncope: Plan: Suspect vasovagal in setting of acute blood loss. - Monitor on telemetry for arrhythmia. (2) Post-op bleeding: Plan: Initially presented for post-op bleeding. Dissolvable sutures placed in the ER. - Prior cardiac stent placed in 2019 - can discontinue Prasugrel indefinitely (follow up with cardiology as unclear why he is still on this) and aspirin until bleeding resolved. - Hgb down to 9.0 today. Given a dose of Venofer. (3) SARS-CoV-2 positive: Plan: Either false positive, asymptomatic or presymptomatic. - Isolation precautions. (4) Hypertension: Plan: BP on the low side today. Presently 110/65. - Hold lisinopril in setting of syncope as above - Continue metoprolol for rate control (5) GERD (gastroesophageal reflux disease): Plan: - Continue pantoprazole 40mg PO daily (6) CAD (coronary artery disease): Plan: Mid RCA x2 overlapping BROCK placed in 05/2019. - Holding aspirin and prasugrel for bleeding - Holding lisinopril due to syncope - Continue metoprolol and atorvastatin (7) DVT prophylaxis: Plan: SCDs - Holding heparin for bleeding Admission and Anticipated Discharge Date Admission Date: May 28, 2021 Subjective Got dizzy with standing up in the morning. Reports no fevers/chills, chest pain, shortness of breath, abdominal pain, nausea, or vomiting. Physical Exam Constitutional: WD/WN, vitals as above Eyes: EOM intact bilaterally; no conjunctival abnormality ENMT: external ear and nose normal, oropharynx normal Neck: trachea midline, no thyromegaly normal visual inspection Respiratory: normal respiratory effort, lungs clear to auscultation no respiratory distress Cardiovascular: RRR, no murmur, no edema Gastrointestinal (Abdomen): Inspection/Auscultation: abdomen normal to inspection; abdomen not distended Musculoskeletal: no cyanosis or clubbing, extremities motor strength 5/5 Skin: no rashes, warm and dry Neurologic: moves all extremities and awake Psychiatric: Orientation: alert, oriented to person and cooperative Results & Data Results & Data ([facility]) Vital Signs (Past 12 Hours) Vital Signs Pulse Pulse Resp BP BP Pulse Ox 05/29/21 09:30 113 H 13 110/66 97 05/29/21 09:00 138 H 15 96 05/29/21 08:30 98 05/29/21 08:00 108 H 20 93/69 L 92 05/29/21 07:55 98 05/29/21 06:00 114 H 123/69 96 PG Care Time/CCT Total # of Minutes Spent Total Time Spent with Patient: Total time spent is greater than 50% in coordination of care (as documented) at patient's floor/unit and/or counseling patient: Coding Level of Care Code 14841 Subseq Hosp Care Lvl 2 Diagnoses Syncope R55 Post-op bleeding SARS-CoV-2 positive U07.1 Hypertension I10 GERD (gastroesophageal reflux disease) K21.9 CAD (coronary artery disease) I25.10 DVT prophylaxis Z29.9
[2021-05-29] MEDS: CHOLECALCIFEROL 1,000 UNITS 25 MCG TAB PO SCH (17:42)
[2021-05-29] MEDS: LATANOPROST 0.005% OP SOLN 2.5 ML BTL OPB SCH (21:56)
[2021-05-30] MEDS: ACETAMINOPHEN 325 MG TAB PO PRN ×2 (02:21→17:12)
--- NOTE | 2021-05-30 06:38 | Electrocardiogram Report ---
Test Reason : Blood Pressure : / mmHG Vent. Rate : 083 BPM Atrial Rate : 083 BPM P-R Int : 214 ms QRS Dur : 060 ms QT Int : 386 ms P-R-T Axes : 040 -11 074 degrees QTc Int : 453 ms Sinus rhythm with sinus arrhythmia with 1st degree A-V block Possible Anteroseptal infarct Abnormal ECG When compared with ECG of 18-MAY-2019 09:46, No significant change was found Confirmed by Indio Garcia ([id number]) on 05/30/2021 6:37:48 AM Referred By: REFERRED SELF Confirmed By:Indio Garcia
[2021-05-30 08:13] LABS: Hematocrit (blood only) 20.3 % (42-52); Hemoglobin 7.1 g/dL (14.0-18.0); Mean Corpuscular Hemoglobin 30.1 pg (25-34); Mean Platelet Volume 9.6 fL (7.4-10.4); Platelet Count 219 K/uL (130-400); RDW Coefficient of Variation 13.8 % (11.5-14.5); RDW Standard Deviation 43.3 fL (36.4-46.3); Red Blood Count 2.36 M/uL (4.7-6.1); White Blood Count 7.08 K/uL (4.8-10.8)
[2021-05-30] MEDS: PANTOprazole 40 MG TAB PO SCH (08:46)
[2021-05-30] MEDS: METOPROLOL TARTRATE 25 MG TAB PO SCH ×2 (08:47→21:17)
[2021-05-30] MEDS: ATORVASTATIN 40 MG TAB PO SCH (08:47)
[2021-05-30] MEDS: TIMOLOL MALEATE 0.5% OP SOLN 5 ML BTL OPB SCH ×2 (08:51→20:33)
[2021-05-30] MEDS: BICALUTAMIDE 50 MG TAB PO SCH ×3 (09:00→21:17)
[2021-05-30 09:04] LABS: BUN Creatinine Ratio 19.6 (10-20); Calcium 8.5 mg/dl (8.5-10.1); Creatinine Clr Calc Pharmacy 84.4 ml/min; Est GFR (African American) 96.1 ml/min; Est GFR (Non-African American) 82.9 ml/min; Potassium 3.3 mmol/L (3.5-5.1)
[2021-05-30] MEDS ORDERED: POTASSIUM CHLORIDE CRTAB 20 MEQ TABCR PO STA (09:57)
[2021-05-30] MEDS ORDERED: SODIUM CHLORIDE 0.9% 250 ML IV PRN (10:15)
--- NOTE | 2021-05-30 16:13 | Hospitalist Progress Note ---
Date of Service May 30, 2021 Assessment & Plan (1) Post-op bleeding: Plan: Initially presented for post-op bleeding. Dissolvable sutures placed in the ER. - Prior cardiac stent placed in 2019 - can discontinue Prasugrel indefinitely (follow up with cardiology as unclear why he is still on this) and aspirin until bleeding resolved. - Hgb down to 7.1 today. Given a dose of Venofer on 05/29. -> Giving 2 units of PRBCs today. He is clearly symptomatic (nearly passing out with position changes; unable to stand for any prolonged period.). If symptoms improve and hgb stable in AM, he can be discharged. (2) Syncope: Plan: Suspect vasovagal/orthostasis in setting of acute blood loss. - Monitor on telemetry for arrhythmia. (3) SARS-CoV-2 positive: Plan: No respiratory symptoms, but may be playing a role in his fatigue and general weakness. - Isolation precautions. (4) Hypertension: Plan: Presently 120/65. - Hold lisinopril in setting of syncope as above - Continue metoprolol for rate control (5) GERD (gastroesophageal reflux disease): Plan: - Continue pantoprazole 40mg PO daily (6) CAD (coronary artery disease): Plan: Mid RCA x2 overlapping BROCK placed in 05/2019. - Holding aspirin and prasugrel for bleeding - Holding lisinopril due to syncope - Continue metoprolol and atorvastatin (7) DVT prophylaxis: Plan: SCDs - Holding heparin for bleeding Admission and Anticipated Discharge Date Admission Date: May 28, 2021 Subjective Got presyncopal with standing and even with sitting. Does not feel he would be safe going home as he lives alone and has a long apartment. Reports no fevers/chills, chest pain, shortness of breath, abdominal pain, nausea, or vomiting. Physical Exam Constitutional: WD/WN, vitals as above Eyes: EOM intact bilaterally; no conjunctival abnormality ENMT: external ear and nose normal, oropharynx normal Neck: trachea midline, no thyromegaly normal visual inspection Respiratory: normal respiratory effort, lungs clear to auscultation no respiratory distress Cardiovascular: RRR, no murmur, no edema Gastrointestinal (Abdomen): Inspection/Auscultation: abdomen normal to inspection; abdomen not distended Musculoskeletal: no cyanosis or clubbing, extremities motor strength 5/5 Skin: no rashes, warm and dry Neurologic: moves all extremities and awake Psychiatric: Orientation: alert, oriented to person and cooperative Results & Data Results & Data ([facility]) Vital Signs (Past 12 Hours) Vital Signs Temp Pulse Pulse Resp BP BP Pulse Ox 05/30/21 16:01 36.8 C 69 18 119/68 98 05/30/21 15:41 37.1 C 65 18 126/73 96 05/30/21 14:52 72 18 140/82 98 05/30/21 14:38 36.6 C 59 L 20 117/70 96 05/30/21 13:55 72 16 138/78 98 05/30/21 12:55 70 15 130/76 98 05/30/21 12:30 15 111/61 96 05/30/21 12:10 36.8 C 63 18 141/80 H 98 05/30/21 11:49 36.8 C 70 20 148/76 H 97 05/30/21 07:19 65 05/30/21 07:02 37.1 C 70 18 127/69 96 05/30/21 05:06 82 PG Care Time/CCT Total # of Minutes Spent Total Time Spent with Patient: Total time spent is greater than 50% in coordination of care (as documented) at patient's floor/unit and/or counseling patient: Coding Level of Care Code 45792 Subseq Hosp Care Lvl 2 Diagnoses Syncope R55 Post-op bleeding SARS-CoV-2 positive U07.1 Hypertension I10 GERD (gastroesophageal reflux disease) K21.9 CAD (coronary artery disease) I25.10 DVT prophylaxis Z29.9
[2021-05-30] MEDS: CHOLECALCIFEROL 1,000 UNITS 25 MCG TAB PO SCH (16:52)
[2021-05-30] MEDS: LATANOPROST 0.005% OP SOLN 2.5 ML BTL OPB SCH (21:17)
[2021-05-31] MEDS: ACETAMINOPHEN 325 MG TAB PO PRN (05:52)
[2021-05-31 07:59] LABS: Hematocrit (blood only) 28.4 % (42-52); Hemoglobin 9.8 g/dL (14.0-18.0); Mean Corpuscular Hgb Conc 34.5 g/dL (32-36); Mean Corpuscular Volume 86.9 fL (80-100); Mean Platelet Volume 9.8 fL (7.4-10.4); Platelet Count 233 K/uL (130-400); RDW Coefficient of Variation 14.2 % (11.5-14.5); RDW Standard Deviation 44.9 fL (36.4-46.3); Red Blood Count 3.27 M/uL (4.7-6.1); White Blood Count 8.63 K/uL (4.8-10.8)
[2021-05-31 08:18] LABS: BUN Creatinine Ratio 13.8 (10-20); Calcium 8.5 mg/dl (8.5-10.1); Creatinine Clr Calc Pharmacy 79.4 ml/min; Est GFR (African American) 93.8 ml/min; Est GFR (Non-African American) 80.9 ml/min; Potassium 3.7 mmol/L (3.5-5.1)
--- NOTE | 2021-05-31 08:22 | Hospitalist Progress Note ---
Date of Service May 31, 2021 Assessment & Plan (1) Post-op bleeding: Plan: Initially presented for post-op bleeding. Dissolvable sutures placed in the ER. - Prior cardiac stent placed in 2018 - can discontinue Prasugrel indefinitely (follow up with cardiology as unclear why he is still on this) and aspirin until bleeding resolved. - Hgb down to 7.1 today. Given a dose of Venofer on 05/29. -> Giving 2 units of PRBCs today. He is clearly symptomatic (nearly passing out with position changes; unable to stand for any prolonged period.). If symptoms improve and hgb stable in AM, he can be discharged. (2) Syncope: Plan: Suspect vasovagal/orthostasis in setting of acute blood loss. - Monitor on telemetry for arrhythmia. (3) SARS-CoV-2 positive: Plan: No respiratory symptoms, but may be playing a role in his fatigue and general weakness. - Isolation precautions. (4) Hypertension: Plan: Presently 120/65. - Hold lisinopril in setting of syncope as above - Continue metoprolol for rate control (5) GERD (gastroesophageal reflux disease): Plan: - Continue pantoprazole 40mg PO daily (6) CAD (coronary artery disease): Plan: Mid RCA x2 overlapping BROCK placed in 05/2019. - Holding aspirin and prasugrel for bleeding - Holding lisinopril due to syncope - Continue metoprolol and atorvastatin (7) DVT prophylaxis: Plan: SCDs - Holding heparin for bleeding Admission and Anticipated Discharge Date Admission Date: May 28, 2021 Results & Data Results & Data ([facility]) Vital Signs (Past 12 Hours) Vital Signs Temp Pulse Pulse Resp BP Pulse Ox 05/31/21 07:19 61 05/31/21 03:00 97.9 F 64 18 130/66 96 05/31/21 02:52 63 05/30/21 23:00 98.1 F 65 18 118/67 95 05/30/21 20:34 73 PG Care Time/CCT Total # of Minutes Spent Total Time Spent with Patient: Total time spent is greater than 50% in coordination of care (as documented) at patient's floor/unit and/or counseling patient: Coding Diagnoses Post-op bleeding Syncope R55 SARS-CoV-2 positive U07.1 Hypertension I10 GERD (gastroesophageal reflux disease) K21.9 CAD (coronary artery disease) I25.10 DVT prophylaxis Z29.9
[2021-05-31] MEDS: BICALUTAMIDE 50 MG TAB PO SCH (08:30)
[2021-05-31] MEDS: ATORVASTATIN 40 MG TAB PO SCH (08:39)
[2021-05-31] MEDS: PANTOprazole 40 MG TAB PO SCH (08:39)
[2021-05-31] MEDS: METOPROLOL TARTRATE 25 MG TAB PO SCH (08:39)
[2021-05-31] MEDS: TIMOLOL MALEATE 0.5% OP SOLN 5 ML BTL OPB SCH (08:41)
--- NOTE | 2021-05-31 16:31 | Discharge Summary ---
Date of Service May 31, 2021 Admission HPI Per Admitting Provider Boo Alfredo is an 80 year old male who presents to the ER with excessive bleeding from tooth extraction site. He reports having his tow teeth 10 and 11 extracted yesterday. Today he woke up in a pool of blood. The bleeding was stopped in the ER and gum area sutured. He was going to be discharged and went to the waiting room at which time he had a syncopal episodes in the waiting room as he was being discharged. No change in his hemoglobin from earlier. He takes lisinopril and metoprolol for his blood pressure but reports not taking these today. He currently feels back to his baseline self. In the ER he was also tested routinely for SARS COV-2 which was subsequently positive. He denies any symptoms of this. He is vaccinated for COVID back in [place], no booster. Due to the syncopal event he was referred to medicine for admission and ongoing management of this. Principal Diagnosis acute blood loss anemia Syncope due to blood loss bleeding from dental extraction Discharge Exam Patient's oral mucosa was inspected with no active bleeding. There was sutures visualized which appear to be intact patient has ecchymosis to his left nasolabial fold Discharge Data Allergies Allergy/AdvReac Type Severity Reaction Status Date / Time No Known Drug Allergies Allergy Verified 05/28/21 11:34 Consultations 05/28/21 13:52 ED Decision to Admit Stat Ordered Studies 05/28/21 14:09 CT head/brain wo con Stat Hospital Course (1) Post-op bleeding: Initially presented for post-op bleeding. Dissolvable sutures placed in the ER. - Prior cardiac stent placed in 2018 - can discontinue Prasugrel indefinitely (follow up with cardiology as unclear why he is still on this) and aspirin until bleeding resolved. - Hgb down to 7.1 today. Given a dose of Venofer on 05/29. -> Giving 2 units of PRBCs 05/30/21. He was clearly symptomatic (nearly passing out with position changes; unable to stand for any prolonged period.). symptoms improved after transfuision and hgb stable (2) Syncope: Suspect vasovagal/orthostasis in setting of acute blood loss. - no arrythmia noted on monitor (3) SARS-CoV-2 positive: No respiratory symptoms, but may be playing a role in his fatigue and general weakness. - Isolation precautions were verbally reinforced with the patient (4) Hypertension: Presently 120/65. - Hold lisinopril in setting of syncope as above recommend restarting in about a week - Continue metoprolol (5) GERD (gastroesophageal reflux disease): - Continue pantoprazole 40mg PO daily (6) CAD (coronary artery disease): Mid RCA x2 overlapping BROCK placed in 05/2019. - Holding aspirin and prasugrel for additional 4 days to discharge bleeding - Holding lisinopril due to syncope likely for 1 week will discuss with outpatient cardiology - Continue metoprolol and atorvastatin Total Time Total Time Spent Total Time Spent (In Minutes): It required greater than 30 minutes to prepare this patient for discharge Discharge Plan Discharge Items Patient Disposition: Home - Self-Care Reason For Visit: BLEEDING FROM TEETH EXTRATIONS Discharge Diagnosis: Anemia from bleeding from tooth extractions Condition on Discharge: Good Activity: Per Instructions section Activity Comment: Gradually increase as tolerated Non-emergency contact: Primary Care Provider Call non-emergency contact if: your symptoms worsen Follow-up/Referrals: Elizabeth Stock MD [Primary Care Provider] - Diet: Heart Healthy Addtl Attending Provider Instructions: Mr. Alfredo, You were admitted to the hospital with anemia after you had bleeding from the site of your tooth extractions. The bleeding was severe enough that you actually needed 2 units of blood. With the blood and resolution of bleeding, you are doing well enough to go home. Please see your dental professional for a check-up to be sure the site is healing well. consider taking a multiple vitamin with iron to help your body heal and build back your blood count For now, please hold your aspirin, prasugrel, and lisinopril. The first two thin your blood, and we would recommend you hold these for four additional days, as we do not want another recurrence of bleeding. 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 Pending Studies at Discharge: No Stand-Alone Forms: My [facility] SocialCompare, Smoking Cessation Medications and DC Order Prescriptions: Continued pantoprazole 40 mg tablet,delayed release (DR/EC) 40 mg PO QAM Qty: 90 RF: 3 bicalutamide [Casodex] 50 mg tablet 50 mg PO TID Qty: 90 RF: 6 metoprolol tartrate 25 mg tablet 25 mg PO BID Qty: 180 RF: 1 atorvastatin 40 mg tablet 80 mg PO QAM Qty: 180 RF: 1 timolol 0.5 % drops 1 drp OPB BID RF: 0 nitroglycerin [Nitrostat] 0.4 mg tablet, sublingual 0.4 mg sublingual PRN PRN (Reason: chest pain) Qty: 1 RF: 0 cholecalciferol (vitamin D3) [Vitamin D3] 25 mcg (1,000 unit) Capsule 25 mcg PO QDD RF: 0 latanoprost 0.005 % drops 1 drp OPB HS RF: 0 Discontinued aspirin [Ecotrin Low Strength] 81 mg tablet,delayed release (DR/EC) 81 mg PO QAM Qty: 30 RF: 5 prasugrel [Effient] 10 mg tablet 10 mg PO QAM Qty: 30 RF: 11 lisinopril 20 mg tablet 20 mg PO QAM Qty: 30 RF: 5 Discharge Orders: Discharge Order (Routine); Ordered 05/31/21 Ordered By: Percy Armstrong/Other Patient Handouts: Prep for HCP Visit Admission Data Admit Date/Time: 05/28/21 15:49 Attending Provider: Percy Hernandez Admit Provider: Sebastian Claros Primary Care Provider: Elizabeth Stock Other Providers: Jaxson Bianchi Other Interventions: Discharge Summary Assessment (RN) Last Done: 05/31/21 11:59 Coding Level of Care Code D/C DAY MANAGEMENT >30 MINS Diagnoses Post-op bleeding Syncope R55 SARS-CoV-2 positive U07.1 Hypertension I10 GERD (gastroesophageal reflux disease) K21.9 CAD (coronary artery disease) I25.10
== END 2021-05-31 12:36 | disposition home or self-care (01) ==
LOC: EDINP 09:50 → ED 09:50 → EDINP 13:06 → SUATTDRO 15:49 → 2N 05-29 18:01
DX: E78.5 Hyperlipidemia, unspecified; I25.10 Atherosclerotic heart disease of native coronary artery without angina pectoris; K21.9 Gastro-esophageal reflux disease without esophagitis; Z79.82 Long term (current) use of aspirin; Z87.891 Personal history of nicotine dependence; R55 Syncope and collapse; D62 Acute posthemorrhagic anemia; K91.89 Other postprocedural complications and disorders of digestive system; Z20.822 Contact with and (suspected) exposure to COVID-19; I25.2 Old myocardial infarction; Z85.46 Personal history of malignant neoplasm of prostate; I10 Essential (primary) hypertension; Z79.899 Other long term (current) drug therapy; U07.1 COVID-19

== ENCOUNTER 2024-05-11 18:43 | Observation (INO) ==
--- NOTE | 2024-05-11 18:45 | Emergency Department Note ---
Impression & Plan Weakness, Acute dehydration, History of orchiectomy, unilateral ED Provider Note NAME: ZURI THOMPSON AGE: 83 SEX: M : 1940 ARRIVES VIA: Ambulance INFORMANT: Patient, ED PROVIDER(S): Edmar Keys MD CHIEF COMPLAINT: Weakness MEDICAL DECISION MAKING: Patient presents due to concern for weakness and inability to get up and out of bed. IV was established and blood work was obtained along with urinalysis chest x-ray and bio fire. Patient's blood work is reassuring. Patient may feel mildly better after IV fluids. Patient with a normal white count H&H and platelet count kidney function is unremarkable. Urinalysis does not show evidence of obvious infection. The patient's surgical site is unremarkable. Patient was up and ambulatory with a walker but still foot very weak. Given the patient's concerns I did speak alcoholism service Dr. Tilley and patient was admitted to the medicine service. Discussion w/ other healthcare providers: Dr. Sanchez relevant patient medicine service Prior /Outside records reviewed: none Differential diagnosis: Infection, dehydration, metabolic abnormality, hypo/hyperglycemia, electrolyte imbalance, anemia, UTI, pneumonia, thyroid dysfunction among others were considered. Diagnostics, as interpreted by me: ECG: Sinus with first-degree AV block, rate of 72, prolonged SC, normal QRS, normal axis T wave version aVL possible Q-wave in lead III. Also Q wave in V2. No obvious STEMI. Cardiac monitoring: An order was placed for continuous cardiac monitoring. The monitor shows a rate of 72 with sinus rhythm. Patient was placed on pulse oximetry Medical decision rules: None Imaging studies: I informally interpreted the patient's chest x-ray does not show obvious pneumonia or pneumothorax with formal report to follow. HPI: Patient presents due to concern for weakness. The patient states that when he woke up this evening he was unable to sit up or get out of bed. The patient did have his testicle removed by Dr. Hamilton on Thursday. The patient states that he is had no issues with the groin or scrotum. Patient denies any fevers or chills. Patient admits to poor p.o. intake and has not been eating or drinking as much in the last several days. No reported chills or fever no chest pain or shortness of breath and the patient denies any vomiting or diarrhea although did feel nauseous prior to arrival. PAST MEDICAL HISTORY: See Below PAST SURGICAL HISTORY: See Below SOCIAL HISTORY: See Below HOME MEDICATIONS: See Below ALLERGIES: See Below VITALS: See Below PHYSICAL EXAMINATION: GENERAL: NAD, non-toxic. EYE EXAM: Normal conjunctiva. PERRL, no anisocoria and EOM's grossly intact w/o pain. OROPHARYNX: Dry mucus membranes, grossly normal dentition. NECK: Trachea midline, no stridor. Supple, no nuchal rigidity, no adenopathy, non-tender. No signs of meningismus. FROM of the neck with good chin to chest and neck extension. LUNGS: Clear to auscultation. Normal chest wall mechanics. HEART: NSR, no MRG. ABDOMEN: Abdomen soft, non-tender, no masses, no rebound or guarding. BACK: No CVA TTP. SKIN: No rashes and no bruising. : Surgical site in the left suprapubic area unremarkable, absent testicle left hemiscrotum, no obvious fluctuance drainage pain or swelling. UPPER EXTREMITIES: Upper extremities are grossly normal. LOWER EXTREMITIES: Grossly normal, no edema. NEURO EXAM: A&O x3, cranial nerves II-XII grossly intact, normal speech, moves all 4 extremities. 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 Trevizo Renal lesion Dr. Sauer monitoring Prostate cancer Sleep disturbance Hip pain, left (Chronic) Encounter for pre-operative examination (Acute) Hypertension GERD (gastroesophageal reflux disease) Non-ST elevation CO (NSTEMI) (Acute) 2018 Medical History On anticoagulant therapy History of COVID-19 (05/2021) no hosp; resolved CAD (coronary artery disease) - 05/2019- post PCI of mid RCA with 2 overlapping BROCK. Stents cover aneurysmal area with short segment of unopposed stents - Moderate nonobstructive non-culprit CAD30% ostial left main, 50% mid circumflex - Follows with Dr. Trevizo- stable at 10/2023 appt History of anemia Mass of testicle Glaucoma Renal lesion - was being monitored, last time checked states was not found - per 03/26/24 A/P CT scan - Multiple left renal hypodensities measuring up to 4.9 cm the lower pole likely represent cysts. 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 History of kidney stones History of depression Hx of Clostridium difficile infection IN 2006 Hx of hepatitis IN 1970'S > UNSURE WHICH TYPE GERD (gastroesophageal reflux disease) Hearing deficit Myocardial Infarction NSTEMI- 05/2019 Hyperlipidemia Hypertension Prostate cancer DX 1996 > RADIOACTIVE SEEDS Surgical History Hx of knee surgery LEFT KNEE > 2 NAILS History of surgery on arm RIGHT ARM >FOR BREAK WITH METAL PLATE History of lithotripsy History of colonoscopy History of heart artery stent x2 (2018) History of cardiac cath 05/2019 - [facility] [place] - 2 stents Family History Family/Other Prostate cancer Self Myocardial infarction Self Mother Congestive heart failure Other No significant family history Denies family history of Ovarian cancer Breast cancer Colorectal cancer Social History Smoking Status: Former smoker Tobacco Type: Cigarettes Age Started Using Tobacco: 13; Age Quit Using Tobacco: 49; packs per day: 1.5; Second Hand Exposure: No; Do You Dip or Chew Tobacco: No; Hx Alcohol Use: Yes Alcohol type: wine Alcohol Intake Frequency: Monthly or Less Hx Substance Use: No Preferred Language: Mosotho Communication Ability: Effective Visual Impairment: Limited Hearing Ability: Hard of Hearing [place] Operator Required: No Beliefs That Will Affect Care: None marital status: Current Living Situation: Other Current Living Situation Comment: Lives at home with live-in caregiver current occupational status: retired How many Children do You have: 4 Feels Safe at Home: Yes Childhood Exposure to Second-Hand Smoke: Yes Diet: regular caffeine: Yes during the past year weight has: remained stable Dental Care, Regularly: Yes Physical Activity Frequency: Daily Seatbelt Use: always Sunscreen Use: Yes Assistive Devices: Denture - Upper, Denture - Lower, Glasses and Hearing Aid - Bilateral Allergies Allergies Allergy/AdvReac Type Severity Reaction Status Date / Time lactose AdvReac Unknown Palpitation Verified 05/09/24 13:21 s Home Meds Home Medications Medication Instructions Recorded Confirmed timolol 0.5 % eye drops 1 drp OPB BID 12/18/20 05/12/24 latanoprost 0.005 % eye drops 1 drp OPB HS 05/28/21 05/12/24 acetaminophen 500 mg tablet 500 mg PO Q6H PRN Pain 03/29/24 05/12/24 Previous Rx's Medication Instructions Recorded nitroglycerin 0.4 mg sublingual 0.4 mg sublingual PRN PRN chest 07/29/23 tablet (Nitrostat) pain #1 btl lisinopril 10 mg tablet 10 mg PO QAM #90 tabs 10/22/23 clopidogrel 75 mg tablet 75 mg PO DAILY #90 tabs 11/23/23 escitalopram oxalate 5 mg tablet 5 mg PO DAILY #90 tabs 11/23/23 (Lexapro) bicalutamide 50 mg tablet (Casodex) 50 mg PO TID 90 days #270 tabs 01/14/24 ezetimibe 10 mg tablet 10 mg PO HS #90 tabs 01/15/24 atorvastatin 40 mg tablet 80 mg (2 x 40 mg) PO QAM #180 tabs 01/27/24 lorazepam 0.5 mg tablet 0.5 mg PO DAILY PRN anxiety #30 01/28/24 tabs pantoprazole 40 mg tablet,delayed 40 mg PO QAM #90 tabs 02/22/24 release oxycodone-acetaminophen 7.5 mg-325 1 tab PO Q8H PRN pain 3 days #7 05/09/24 mg tablet (Percocet) tabs cefdinir 300 mg capsule 300 mg PO BID #4 caps 05/12/24 Results & Data (ED) Vital Signs Vital Signs - 24 hr 05/11/24 18:56 05/11/24 18:57 05/11/24 19:11 Temperature 36.9 C Temperature Source Oral Pulse Rate 71 69 Pulse Rate [Apical] Respiratory Rate 22 Respiratory Effort / Characteristics Non-Labored Respiratory Depth Normal Blood Pressure 132/61 Blood Pressure [Right Arm] Blood Pressure Mean 84 Blood Pressure Mean [Right Arm] Blood Pressure Position [Right Arm] Pulse Oximetry 95 Oxygen Delivery Method Room Air Room Air Sepsis Recent Fever Within 48 Hours No Sepsis New/Unexplained Change in Mental Status No Sepsis Action Taken by Nursing No Action Required 05/11/24 20:52 05/11/24 22:00 Temperature Temperature Source Pulse Rate Pulse Rate [Apical] 71 71 Respiratory Rate 19 18 Respiratory Effort / Characteristics Respiratory Depth Blood Pressure Blood Pressure [Right Arm] 130/61 150/69 H Blood Pressure Mean Blood Pressure Mean [Right Arm] 84 96 Blood Pressure Position [Right Arm] Semi-fowlers Semi-fowlers Pulse Oximetry 95 92 Oxygen Delivery Method Room Air Room Air Sepsis Recent Fever Within 48 Hours Sepsis New/Unexplained Change in Mental Status Sepsis Action Taken by Halfway Medications Current Medication List: was personally reviewed by me Laboratory Data Attestation: I reviewed the patient's lab results. 05/12/24 07:11 05/12/24 07:11 Lab Results 05/11/24 Range/Units 20:00 Urine Color Yellow Urine Appearance Clear (Clear) Urine pH 5.5 (4.5-7.5) Ur Specific [place] 1.025 (1.000-1.030) Urine Protein Trace H (Negative) Urine Glucose (UA) Negative (Negative) Urine Ketones Trace H (Negative) Urine Blood 1+ H (Negative) Urine Nitrite Negative (Negative) Urine Bilirubin Negative (Negative) Urine Urobilinogen Negative (Negative) Ur Leukocyte Esterase Negative (Negative) Urine WBC (Auto) 0-5 (0-5) /hpf Urine RBC (Auto) 11-20 H (0-2) /hpf U Hyaline Cast (Auto) 0-2 (0-2) /lpf U Epithel Cells (Auto) 0-2 (0-2) /hpf Urine Bacteria (Auto) None Seen (None Seen) Administered Medications Discontinued Medications Acetaminophen (Acetaminophen 325 Mg Tab) 650 mg PO Q6H PRN PRN Reason: Pain or Fever Stop: 06/11/24 00:27 Last Admin: 05/12/24 05:26 Dose: 650 mg Documented By: ACO Atorvastatin Calcium ([facility]vastatin 40 Mg Tab) [facility] [place] Stop: 06/11/24 08:59 Last Admin: 05/12/24 08:35 Dose: 80 mg Documented By: CHARBEL Bicalutamide (Bicalutamide 50 Mg Tab) 50 mg PO TID AMRIK Stop: 06/11/24 08:59 Last Admin: 05/12/24 13:40 Dose: 50 mg Documented By: CHARBEL Co-signed By: TAWANDA Admin: 05/12/24 08:35 Dose: 50 mg Documented By: CHARBEL Co-signed By: NYAELY Clopidogrel Bisulfate (Clopidogrel Bisulfate 75 Mg Tab) 75 mg PO DAILY AMRIK Stop: 06/11/24 08:59 Last Admin: 05/12/24 08:35 Dose: 75 mg Documented By: CHARBEL Escitalopram Oxalate (Escitalopram Oxalate 10 Mg Tab) 5 mg PO DAILY [facility] Stop: 06/11/24 08:59 Last Admin: 05/12/24 08:36 Dose: 5 mg Documented By: CHARBEL Heparin Sodium (Porcine) (Heparin Sod 5,000 Unit/0.5 Ml Vial) 5,000 units SQ Q12 AMRIK Stop: 06/11/24 08:59 Last Admin: 05/12/24 08:39 Dose: 5,000 units Documented By: CHARBEL Sodium Chloride (Nss) 1,000 mls @ 999 mls/hr IV .Q1H1M ONE Stop: 05/11/24 19:56 Last Infusion: 05/11/24 20:06 Dose: Infused Documented By: Admin: 05/11/24 19:05 Dose: 999 mls/hr Documented By: DINORA Potassium Chloride/Sodium Chloride (Normal Saline W/20 Meq Kcl) 20 meq in 1,000 mls @ 80 mls/hr IV .[id number] AMRIK Stop: 05/12/24 11:14 Last Infusion: 05/12/24 10:27 Dose: 0 mls/hr Documented By: Admin: 05/11/24 23:27 Dose: 80 mls/hr Documented By: DINORA Ceftriaxone Sodium (Rocephin) 2,000 mg in 50 mls @ 100 mls/hr IV NOW STA Stop: 05/11/24 23:39 Last Infusion: 05/12/24 00:00 Dose: Infused Documented By: Admin: 05/11/24 23:27 Dose: 100 mls/hr Documented By: DINORA Magnesium Sulfate/Dextrose (Magnesium Sulfate / D5w) 1 gm in 100 mls @ 50 mls/hr IV ONE ONE Stop: 05/12/24 12:02 Last Infusion: 05/12/24 13:26 Dose: Infused Documented By: Admin: 05/12/24 11:21 Dose: 50 mls/hr Documented By: CHARBEL Pantoprazole Sodium (Pantoprazole 40 Mg Tab) 40 mg PO QAM [facility] Stop: 06/11/24 08:59 Last Admin: 05/12/24 08:36 Dose: 40 mg Documented By: CHARBEL Timolol Maleate (Timolol Maleate 0.5% Op Soln 5 Ml Btl) 1 drops OP BID [facility] Stop: 06/11/24 08:59 Last Admin: 05/12/24 08:37 Dose: 1 drops Documented By: CHARBEL Imaging Data Radiologist's Impression: Chest X-Ray 05/11/24 18:57 Exam(s): XR CXR 1 VIEW EXAM: XR Chest, 1 View CLINICAL HISTORY: Reason for exam: weakness. TECHNIQUE: Frontal view of the chest. COMPARISON: April 18, 2024 FINDINGS: Lungs: Unremarkable. No consolidation. Pleural space: Unremarkable. No pneumothorax. Heart: Unremarkable. No cardiomegaly. Mediastinum: Unremarkable. Normal mediastinal contour. Bones/joints: Mild degenerative changes in the thoracic spine. No acute fracture. Vasculature: The aortic arch is mildly calcified but nondilated. Upper abdomen: There is no pneumoperitoneum under the diaphragm. IMPRESSION: No acute findings in the chest. Electronically signed by: Vini Marquez MD 05/11/24 21:05 PM Discharge Plan Visit Data Chief Complaint: Weakness ED Provider: Edmar Keys Discharge Problem: Weakness, Acute dehydration, History of orchiectomy, unilateral Patient Disposition: Admitted As Inpatient Condition: Good Discharge Instructions Interventions: ED Discharge Assessment Last Done: 05/12/24 00:01
[2024-05-11] MEDS: SODIUM CHLORIDE 0.9% 1,000 ML IV ONE (19:05)
[2024-05-11 19:12] LABS: Basophils # (auto) 0.03 K/uL (0.00-0.20); Basophils % (auto) 0.3 %; Eosinophils # (auto) 0.03 K/uL (0.00-0.50); Eosinophils % (auto) 0.3 %; Hemoglobin 12.1 g/dl (14.0-18.0); Immature Granulocytes % (auto) 0.9 %; Lymphocytes # (auto) 0.88 K/uL (1.20-3.40); Lymphocytes % (auto) 8.2 %; Mean Corpuscular Hemoglobin 29.4 pg (25.0-34.0); Mean Corpuscular Hgb Conc 34.6 g/dL (32.0-36.0); Mean Corpuscular Volume 85.2 fL (80.0-100.0); Monocytes # (auto) 2.03 K/uL (0.11-0.59); Neutrophils # (auto) 7.61 K/uL (1.40-6.50); Neutrophils % (auto) 71.3 %; Platelet Count 142 K/uL (130-400); RDW Coefficient of Variation 13.4 % (11.5-14.5); RDW Standard Deviation 42.3 fL (36.4-46.3); Red Blood Count 4.11 M/uL (4.70-6.10); White Blood Count 10.68 K/ul (4.8-10.8)
[2024-05-11 19:27] LABS: Albumin Globulin Ratio 1.4 (0.9-2); Albumin Level 3.8 gm/dl (3.4-5.0); Bilirubin,Total 0.9 mg/dl (0.2-1.0); Globulin 2.8 gm/dl (2.5-4.0); Magnesium 1.7 mg/dl (1.7-2.4); Potassium 3.7 mmol/L (3.5-5.1); Total Protein 6.6 gm/dl (6.0-8.3)
[2024-05-11 19:42] LABS: Thyroid Stimulating Hormone 0.692 uIu/ml (0.300-4.500)
[2024-05-11 20:21] LABS: Appearance Urine Clear (Clear); Bacteria Urine Automated None Seen (None Seen); Bilirubin Urine Negative (Negative); Blood Urine 1+ (Negative); Cast Urine Automated 0-2 /lpf (0-2); Color Urine Yellow; Epithelial Cell Urine Auto 0-2 /hpf (0-2); Glucose Urine UA Negative (Negative); Ketones Urine Trace (Negative); Leukocyte Esterase Urine Negative (Negative); Nitrite Urine Negative (Negative); Protein Urine Trace (Negative); Specific Gravity Urine 1.025 (1.000-1.030); Urobilinogen Urine Negative (Negative); WBC Urine Automated 0-5 /hpf (0-5); pH Urine 5.5 (4.5-7.5)
[2024-05-11 20:22] LABS: Adenovirus PCR Not Detected (NotDetected); Bordetella parapertussis PCR Not Detected (NotDetected); Bordetella pertussis PCR Not Detected (NotDetected); Chlamydia pneumoniae PCR Not Detected (NotDetected); Coronavirus 229E PCR Not Detected (NotDetected); Coronavirus CoV-2 (COVID19)PCR Not Detected (NotDetected); Coronavirus HKU1 PCR Not Detected (NotDetected); Coronavirus NL63 PCR Not Detected (NotDetected); Coronavirus OC43PCR Not Detected (NotDetected); Human Metapneumovirus PCR Not Detected (NotDetected); Influenza A PCR Not Detected (NotDetected); Influenza B PCR Not Detected (NotDetected); Mycoplasma pneumoniae PCR Not Detected (NotDetected); Parainfluenza Virus 1 PCR Not Detected (NotDetected); Parainfluenza Virus 2 PCR Not Detected (NotDetected); Parainfluenza Virus 3 PCR Not Detected (NotDetected); Parainfluenza Virus 4 PCR Not Detected (NotDetected); Respiratory Syncytial VirusPCR Not Detected (NotDetected); Rhinovirus/Enterovirus PCR Not Detected (NotDetected)
--- NOTE | 2024-05-11 21:06 | XRay Report ---
Exam(s): XR CXR 1 VIEW EXAM: XR Chest, 1 View CLINICAL HISTORY: Reason for exam: weakness. TECHNIQUE: Frontal view of the chest. COMPARISON: April 18, 2024 FINDINGS: Lungs: Unremarkable. No consolidation. Pleural space: Unremarkable. No pneumothorax. Heart: Unremarkable. No cardiomegaly. Mediastinum: Unremarkable. Normal mediastinal contour. Bones/joints: Mild degenerative changes in the thoracic spine. No acute fracture. Vasculature: The aortic arch is mildly calcified but nondilated. Upper abdomen: There is no pneumoperitoneum under the diaphragm. IMPRESSION: No acute findings in the chest. Electronically signed by: Vini Marquez MD 05/11/24 21:05 PM
--- NOTE | 2024-05-11 22:30 | History & Physical Report ---
Date of Service May 11, 2024 Assessment & Plan (1) Weakness: (2) Mass of testicle: (3) History of orchiectomy, unilateral: (4) Prostate cancer: (5) CAD (coronary artery disease): Plan Acute onset of bilateral upper and lower extremity weakness- Symptoms began early in the morning of 05/11 upon awakening. Patient recently had an unilateral orchiectomy performed on 05/09. He was started on tamsulosin 0.4 mg at bedtime, which he took the evening of 05/10 He was also started on Bactrim DS twice daily. Urinalysis shows hematuria, but no clear signs of active infection Surgical site looks noninfected Suspect patient's symptoms are due to an adverse reaction to tamsulosin, and/or Bactrim DS, both of which will be held He was placed on empiric dosing of ceftriaxone 2 g IV daily, and will follow urine culture and sensitivity Status post 1 L normal saline bolus in the ED Place on NSS + KCl 20 mill equivalents at 80 mL/h x 1 L Acetaminophen 650 mg by mouth every 6 hours as needed for mild pain or fever Percocet 7.5/325, 1 every 8 hours as needed for moderate pain Consult urology CAD/hypertension- Hold lisinopril Continue atorvastatin, Zetia, clopidogrel Prostate cancer- Continue bicalutamide History of Present Illness Chief Complaint: The patient presents to the emergency department with complaint of waking up on the morning of 05/11 with severe weakness, inability to get up and out of bed, and dragged himself across the floor to the restroom. The symptoms persisted throughout the day, and was then referred to the emergency department via ambulance when he called his outpatient physician later in the day. His report was that of generalized weakness in both arms and legs Primary Care Provider: Elizabeth Stock MD The patient is an 83-year-old male with a past medical history including history of traumatic subdural hematoma, anemia, syncope, CAD, prostate cancer, hypertension, GERD, NSTEMI. He underwent an inguinal radical orchiectomy of the left testicle secondary to testicular mass on 05/09/2024. He had been doing well on May 10, but awoke on the morning of May 11 with severe symptoms as noted above. He had been discharged on tamsulosin, which he took the night before, and Bactrim DS twice daily. He denies any associated fevers or chills, nausea or vomiting. He did report some issues with controlling his urine. Allergies Allergy/AdvReac Type Severity Reaction Status Date / Time lactose AdvReac Unknown Palpitation Verified 05/09/24 13:21 s Home Medications Medication Instructions Recorded Confirmed Type timolol 0.5 % eye drops 1 drp OPB BID 12/18/20 05/09/24 History latanoprost 0.005 % eye drops 1 drp OPB HS 05/28/21 05/09/24 History nitroglycerin 0.4 mg sublingual 0.4 mg sublingual PRN PRN chest 07/29/23 05/09/24 Rx tablet (Nitrostat) pain #1 btl lisinopril 10 mg tablet 10 mg PO QAM #90 tabs 10/22/23 05/09/24 Rx clopidogrel 75 mg tablet 75 mg PO DAILY #90 tabs 11/23/23 05/09/24 Rx escitalopram oxalate 5 mg tablet 5 mg PO DAILY #90 tabs 11/23/23 05/09/24 Rx (Lexapro) bicalutamide 50 mg tablet (Casodex) 50 mg PO TID 90 days #270 tabs 01/14/24 05/09/24 Rx ezetimibe 10 mg tablet 10 mg PO HS #90 tabs 01/15/24 05/09/24 Rx atorvastatin 40 mg tablet 80 mg (2 x 40 mg) PO QAM #180 tabs 01/27/24 05/09/24 Rx lorazepam 0.5 mg tablet 0.5 mg PO DAILY PRN anxiety #30 01/28/24 05/09/24 Rx tabs pantoprazole 40 mg tablet,delayed 40 mg PO QAM #90 tabs 02/22/24 05/09/24 Rx release acetaminophen 500 mg tablet 500 mg PO Q6H PRN Pain 03/29/24 05/09/24 History oxycodone-acetaminophen 7.5 mg-325 1 tab PO Q8H PRN pain 3 days #7 05/09/24 05/09/24 Rx mg tablet (Percocet) tabs sulfamethoxazole 800 1 tab PO Q12H #10 tabs 05/09/24 05/09/24 Rx mg-trimethoprim 160 mg tablet (Bactrim DS) tamsulosin 0.4 mg capsule 0.4 mg PO HS #30 caps 05/09/24 05/09/24 Rx Past Med/Surg History Problem List (Updated 05/12/24 @ 00:35 by Eduar Castañeda PA-C) History of orchiectomy, unilateral Weakness Mass of testicle Hydrocele Excessive cerumen in right ear canal 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 Trevizo Renal lesion Dr. Sauer monitoring Prostate cancer Sleep disturbance Hip pain, left (Chronic) Encounter for pre-operative examination (Acute) Hypertension GERD (gastroesophageal reflux disease) Non-ST elevation [place] (NSTEMI) (Acute) 2018 Medical History On anticoagulant therapy History of COVID-19 (05/2021) no hosp; resolved CAD (coronary artery disease) - 05/2019- post PCI of mid RCA with 2 overlapping BROCK. Stents cover aneurysmal area with short segment of unopposed stents - Moderate nonobstructive non-culprit CAD30% ostial left main, 50% mid circumflex - Follows with Dr. Trevizo- stable at 10/2023 appt History of anemia Mass of testicle Glaucoma Renal lesion - was being monitored, last time checked states was not found - per 03/26/24 A/P CT scan - Multiple left renal hypodensities measuring up to 4.9 cm the lower pole likely represent cysts. 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 History of kidney stones History of depression Hx of Clostridium difficile infection IN 2007 Hx of hepatitis IN 1970'S > UNSURE WHICH TYPE GERD (gastroesophageal reflux disease) Hearing deficit Myocardial Infarction NSTEMI- 05/2019 Hyperlipidemia Hypertension Prostate cancer DX 1996 > RADIOACTIVE SEEDS Surgical History Hx of knee surgery LEFT KNEE > 2 NAILS History of surgery on arm RIGHT ARM >FOR BREAK WITH METAL PLATE History of lithotripsy History of colonoscopy History of heart artery stent x2 (2019) History of cardiac cath 05/2019 - [facility] [place] - 2 stents Family History Family/Other Prostate cancer Self Myocardial infarction Self Mother Congestive heart failure Other No significant family history Denies family history of Ovarian cancer Breast cancer Colorectal cancer Social History Smoking Status: Former smoker Tobacco Type: Cigarettes Age Started Using Tobacco: 13; Age Quit Using Tobacco: 49; packs per day: 1.5; Second Hand Exposure: No; Do You Dip or Chew Tobacco: No; Hx Alcohol Use: Yes Alcohol type: wine Alcohol Intake Frequency: Monthly or Less Hx Substance Use: No Preferred Language: Uzbek Communication Ability: Effective Visual Impairment: Limited Hearing Ability: Hard of Hearing 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 Beliefs That Will Affect Care: None marital status: Current Living Situation: Other Current Living Situation Comment: Lives at home with live-in caregiver current occupational status: retired How many Children do You have: 4 Feels Safe at Home: Yes Childhood Exposure to Second-Hand Smoke: Yes Diet: regular caffeine: Yes during the past year weight has: remained stable Dental Care, Regularly: Yes Physical Activity Frequency: Daily Seatbelt Use: always Sunscreen Use: Yes Assistive Devices: Denture - Upper, Denture - Lower, Glasses and Hearing Aid - Bilateral Review of Systems Review of Systems: The patient denies chest pain, palpitations, shortness of breath, dyspnea on exertion, cough, lower extremity swelling, sore throat, fevers, chills, sweats, nausea, vomiting, diarrhea , constipation, abdominal pain, pelvic pain, blood in urine or stool, lightheadedness, dizziness, headache, memory loss, loss of consciousness, rash, abnormal bruising or bleeding, focal weakness, numbness or tingling in arms or legs, back or neck pain, or night sweats. The review of systems is otherwise negative other than for that already noted above, and at least 10 systems have been reviewed. Physical Exam Physical Exam: The patient is awake, alert and oriented 3, well developed and well nourished, normocephalic and atraumatic, lying in bed and in no acute distress. HEENT--PERRL, EOMI, mucous membranes and oropharynx mildly dry. Neck--supple. No JVD. No bruits. Thyroid normal, trachea midline, no adenopathy. Heart--normal S1 and S2. No murmurs, rubs or gallops. Lungs--clear bilaterally, no respiratory distress, no accessory muscle use. Abdomen--normal bowel sounds and soft. Nontender. Nondistended. Incision site is noninfected appearing Extremities--no cyanosis or clubbing. No edema. Dermatologic--as above Neurologic--cranial nerves II through XII grossly intact. Rheumatologic--normal range of motion. Psychiatric--normal affect. Results & Data Results & Data Vital Signs (Past 12 Hours) Vital Signs Temp Pulse Pulse Resp BP BP Pulse Ox 05/11/24 20:52 71 19 130/61 95 05/11/24 19:11 69 05/11/24 18:57 05/11/24 18:56 36.9 C 71 22 132/61 95 O2 Del Method 05/11/24 20:52 Room Air 05/11/24 19:11 05/11/24 18:57 Room Air 05/11/24 18:56 Room Air Laboratory Results Laboratory Results WBC 10.68 K/ul (4.8-10.8) 05/11/24 Unknown RBC 4.11 M/uL (4.70-6.10) L 05/11/24 Unknown Hgb 12.1 g/dl (14.0-18.0) L 05/11/24 Unknown Hct 35.0 % (42.0-52.0) L 05/11/24 Unknown MCV 85.2 fL (80.0-100.0) 05/11/24 Unknown MCH 29.4 pg (25.0-34.0) 05/11/24 Unknown MCHC 34.6 g/dL (32.0-36.0) 05/11/24 Unknown RDW Std Deviation 42.3 fL (36.4-46.3) 05/11/24 Unknown RDW Coeff of Paulo 13.4 % (11.5-14.5) 05/11/24 Unknown Plt Count 142 K/uL (130-400) 05/11/24 Unknown MPV 10.0 fL (9.4-12.4) 05/11/24 Unknown Immature Gran % (Auto) 0.9 % 05/11/24 Unknown Neut % (Auto) 71.3 % 05/11/24 Unknown Lymph % (Auto) 8.2 % 05/11/24 Unknown [place] % (Auto) 19.0 % 05/11/24 Unknown Eos % (Auto) 0.3 % 05/11/24 Unknown Baso % (Auto) 0.3 % 05/11/24 Unknown Neut # (Auto) 7.61 K/uL (1.40-6.50) H 05/11/24 Unknown Lymph # (Auto) 0.88 K/uL (1.20-3.40) L 05/11/24 Unknown [place] # (Auto) 2.03 K/uL (0.11-0.59) H 05/11/24 Unknown Eos # (Auto) 0.03 K/uL (0.00-0.50) 05/11/24 Unknown Baso # (Auto) 0.03 K/uL (0.00-0.20) 05/11/24 Unknown Immature Gran # (Auto) 0.10 K/uL (0.01-0.20) 05/11/24 Unknown Sodium 137 mmol/L (136-145) 05/11/24 Unknown Potassium 3.7 mmol/L (3.5-5.1) 05/11/24 Unknown Chloride 105 mmol/L (98-107) 05/11/24 Unknown Carbon Dioxide 25 mmol/L (21-32) 05/11/24 Unknown Anion Gap 7 (3-11) 05/11/24 Unknown BUN 16 mg/dl (6-23) 05/11/24 Unknown Creatinine 1.07 mg/dl (0.6-1.4) 05/11/24 Unknown Est Cr Clr Drug Dosing 65.0 ml/min 05/11/24 Unknown eGFR 68.43 05/11/24 Unknown BUN/Creatinine Ratio 15.0 (10-20) 05/11/24 Unknown Glucose 95 mg/dl (70-99(Fasting)) 05/11/24 Unknown Calcium 9.0 mg/dl (8.6-10.3) 05/11/24 Unknown Magnesium 1.7 mg/dl (1.7-2.4) 05/11/24 Unknown Total Bilirubin 0.9 mg/dl (0.2-1.0) 05/11/24 Unknown AST 27 U/L (13-39) 05/11/24 Unknown ALT 12 U/L (7-52) 05/11/24 Unknown Alkaline Phosphatase 66 U/L (34-104) 05/11/24 Unknown Total Protein 6.6 gm/dl (6.0-8.3) 05/11/24 Unknown Albumin 3.8 gm/dl (3.4-5.0) 05/11/24 Unknown Globulin 2.8 gm/dl (2.5-4.0) 05/11/24 Unknown Albumin/Globulin Ratio 1.4 (0.9-2) 05/11/24 Unknown TSH 0.692 uIu/ml (0.300-4.500) 05/11/24 Unknown Urine Color Yellow 05/11/24 20:00 Urine Appearance Clear (Clear) 05/11/24 20:00 Urine pH 5.5 (4.5-7.5) 05/11/24 20:00 Ur Specific [place] 1.025 (1.000-1.030) 05/11/24 20:00 Urine Protein Trace (Negative) H 05/11/24 20:00 Urine Glucose (UA) Negative (Negative) 05/11/24 20:00 Urine Ketones Trace (Negative) H 05/11/24 20:00 Urine Blood 1+ (Negative) H 05/11/24 20:00 Urine Nitrite Negative (Negative) 05/11/24 20:00 Urine Bilirubin Negative (Negative) 05/11/24 20:00 Urine Urobilinogen Negative (Negative) 05/11/24 20:00 Ur Leukocyte Esterase Negative (Negative) 05/11/24 20:00 Urine WBC (Auto) 0-5 /hpf (0-5) 05/11/24 20:00 Urine RBC (Auto) 11-20 /hpf (0-2) H 05/11/24 20:00 U Hyaline Cast (Auto) 0-2 /lpf (0-2) 05/11/24 20:00 U Epithel Cells (Auto) 0-2 /hpf (0-2) 05/11/24 20:00 Urine Bacteria (Auto) None Seen (None Seen) 05/11/24 20:00 Adenovirus (PCR) Not Detected (NotDetected) 05/11/24 Unknown B. pertussis DNA (PCR) Not Detected (NotDetected) 05/11/24 Unknown B.parapertussis DNA PCR Not Detected (NotDetected) 05/11/24 Unknown C. pneumoniae DNA (PCR) Not Detected (NotDetected) 05/11/24 Unknown Coronavirus OC43 (PCR) Not Detected (NotDetected) 05/11/24 Unknown Coronavirus HKU1 (PCR) Not Detected (NotDetected) 05/11/24 Unknown Coronavirus 229E (PCR) Not Detected (NotDetected) 05/11/24 Unknown SARS-CoV-2 (PCR) Not Detected (NotDetected) 05/11/24 Unknown Coronavirus NL63 (PCR) Not Detected (NotDetected) 05/11/24 Unknown Human Metapneumovir PCR Not Detected (NotDetected) 05/11/24 Unknown Influenza Type A (PCR) Not Detected (NotDetected) 05/11/24 Unknown Influenza Type B (PCR) Not Detected (NotDetected) 05/11/24 Unknown M. pneumoniae (PCR) Not Detected (NotDetected) 05/11/24 Unknown Parainfluenza 1 (PCR) Not Detected (NotDetected) 05/11/24 Unknown Parainfluenza 2 (PCR) Not Detected (NotDetected) 05/11/24 Unknown Parainfluenza 3 (PCR) Not Detected (NotDetected) 05/11/24 Unknown Parainfluenza 4 (PCR) Not Detected (NotDetected) 05/11/24 Unknown RSV (PCR) Not Detected (NotDetected) 05/11/24 Unknown Entero/Rhino (PCR) Not Detected (NotDetected) 05/11/24 Unknown Impressions Chest X-Ray 05/11/24 18:57 Exam(s): XR CXR 1 VIEW EXAM: XR Chest, 1 View CLINICAL HISTORY: Reason for exam: weakness. TECHNIQUE: Frontal view of the chest. COMPARISON: April 18, 2024 FINDINGS: Lungs: Unremarkable. No consolidation. Pleural space: Unremarkable. No pneumothorax. Heart: Unremarkable. No cardiomegaly. Mediastinum: Unremarkable. Normal mediastinal contour. Bones/joints: Mild degenerative changes in the thoracic spine. No acute fracture. Vasculature: The aortic arch is mildly calcified but nondilated. Upper abdomen: There is no pneumoperitoneum under the diaphragm. IMPRESSION: No acute findings in the chest. Electronically signed by: Vini Marquez MD 05/11/24 21:05 PM Code Status & VTE Plan Code Status Full code PG Care Time/CCT Total # of Minutes Spent Total Time Spent with Patient: Total time spent is greater than 50% in coordination of care (as documented) at patient's floor/unit and/or counseling patient: Coding Level of Care Code 23186 INT INP/OBS CARE 3/75MIN Diagnoses Weakness R53.1 Mass of testicle N50.89 History of orchiectomy, unilateral Z90.79 Prostate cancer C61 Coronary artery disease of nondalton artery of nondalton heart with stable angina pectoris I25.118 Coronary Disease-Associated Artery/Lesion type: nondalton artery [place] vs. transplanted heart: nondalton heart Associated angina: with stable angina (5) CAD (coronary artery disease) Coronary Disease-Associated Artery/Lesion type: nondalton artery [place] vs. transplanted heart: nondalton heart Associated angina: with stable angina Qualified Code(s): I25.118 - Atherosclerotic heart disease of nondalton coronary artery with other forms of angina pectoris
[2024-05-11 22:37] VITALS: RESP 18
[2024-05-11] MEDS: cefTRIAXone SODIUM 2,000 MG/50 ML BAG IV STA (23:27)
[2024-05-11] MEDS: NSS + 20MEQ KCL 20 MEQ/1,000 ML BAG IV SCH (23:27)
[2024-05-12] MEDS ORDERED: NITROGLYCERIN SL 0.4 MG/TAB TAB SL PRN (00:28)
[2024-05-12] MEDS ORDERED: ONDANSETRON INJ 2 MG/ML 2 ML VIAL IV PRN (00:28)
[2024-05-12] MEDS ORDERED: oxyCODONE/APAP 7.5/325MG TAB PO PRN (00:28)
--- NOTE | 2024-05-12 00:36 | Urology Consultation ---
Date of Consultation May 12, 2024 Assessment & Plan (1) Weakness: Patient is being admitted by the hospitalist service. From a urologic perspective we recommend the following: It does not appear as though the patient has any signs of urinary tract infection or infection for surgical incision I did discuss with the hospitalist and there is concern the patient may have had some generalized weakness from transient hypotension from utilization of Flomax The admitting the patient for observation due to his underlying weakness Will monitor the patient clinically for the present time as I do not feel there is any active urologic intervention needs to be undertaken Additional recommendations will be forthcoming based on his clinical course as unfolds History of Present Illness Reason for Consultation: Generalized weakness following urologic procedure Attending Physician: Tyrone Mcgowan MD History of Present Illness This is an 83-year-old male who underwent a recent urologic procedure with Dr. Boo Hamilton of [facility] physician group urology. On 05/09/24 the patient underwent a inguinal radical orchiectomy of the left testicle secondary to testicular mass. Pathology from this procedure is pending Patient presented emergency department this evening secondary to generalized weakness. Patient does note initially after his surgical procedure he was doing well tolerating regular diet but earlier today he felt generally weak and had a great deal of difficulty walking. He also notes a decreased appetite. He denies any falls or head injuries. He specifically denies any abdominal pain. He denies any nausea or vomiting. He notes that he is urinating without difficulty or dysuria. Patient denies any fevers, shakes, or chills. Patient notes that he has been taking Flomax since his procedure. Since arrival to the hospital today he has had labs and imaging which independent reviewed. Chest x-ray showed no evidence of pneumonia. CBC revealed white blood cell count platelet count were normal. Hemoglobin hematocrit 12.1 and 35.0. Chemistry profile showed sodium, potassium, BUN, creatinine were all normal. Urinalysis was not indicative of infection. A bio fire study/panel was obtained and was negative for all viruses tested. At the time my interview the patient was resting comfortably bed he was no distress Allergies Allergy/AdvReac Type Severity Reaction Status Date / Time lactose AdvReac Unknown Palpitation Verified 05/09/24 13:21 s Home Medications Medication Instructions Recorded Confirmed Type timolol 0.5 % eye drops 1 drp OPB BID 12/18/20 05/09/24 History latanoprost 0.005 % eye drops 1 drp OPB HS 05/28/21 05/09/24 History nitroglycerin 0.4 mg sublingual 0.4 mg sublingual PRN PRN chest 07/29/23 05/09/24 Rx tablet (Nitrostat) pain #1 btl lisinopril 10 mg tablet 10 mg PO QAM #90 tabs 10/22/23 05/09/24 Rx clopidogrel 75 mg tablet 75 mg PO DAILY #90 tabs 11/23/23 05/09/24 Rx escitalopram oxalate 5 mg tablet 5 mg PO DAILY #90 tabs 11/23/23 05/09/24 Rx (Lexapro) bicalutamide 50 mg tablet (Casodex) 50 mg PO TID 90 days #270 tabs 01/14/24 05/09/24 Rx ezetimibe 10 mg tablet 10 mg PO HS #90 tabs 01/15/24 05/09/24 Rx atorvastatin 40 mg tablet 80 mg (2 x 40 mg) PO QAM #180 tabs 01/27/24 05/09/24 Rx lorazepam 0.5 mg tablet 0.5 mg PO DAILY PRN anxiety #30 01/28/24 05/09/24 Rx tabs pantoprazole 40 mg tablet,delayed 40 mg PO QAM #90 tabs 02/22/24 05/09/24 Rx release acetaminophen 500 mg tablet 500 mg PO Q6H PRN Pain 03/29/24 05/09/24 History oxycodone-acetaminophen 7.5 mg-325 1 tab PO Q8H PRN pain 3 days #7 05/09/24 05/09/24 Rx mg tablet (Percocet) tabs sulfamethoxazole 800 1 tab PO Q12H #10 tabs 05/09/24 05/09/24 Rx mg-trimethoprim 160 mg tablet (Bactrim DS) tamsulosin 0.4 mg capsule 0.4 mg PO HS #30 caps 05/09/24 05/09/24 Rx Patient History Medical History On anticoagulant therapy History of COVID-19 (05/2021) no hosp; resolved CAD (coronary artery disease) - 05/2019- post PCI of mid RCA with 2 overlapping BROCK. Stents cover aneurysmal area with short segment of unopposed stents - Moderate nonobstructive non-culprit CAD30% ostial left main, 50% mid circumflex - Follows with Dr. Trevizo- stable at 10/2023 appt History of anemia Mass of testicle Glaucoma Renal lesion - was being monitored, last time checked states was not found - per 03/26/24 A/P CT scan - Multiple left renal hypodensities measuring up to 4.9 cm the lower pole likely represent cysts. 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 History of kidney stones History of depression Hx of Clostridium difficile infection IN 2006 Hx of hepatitis IN 1969'S > UNSURE WHICH TYPE GERD (gastroesophageal reflux disease) Hearing deficit Myocardial Infarction NSTEMI- 05/2019 Hyperlipidemia Hypertension Prostate cancer DX 1996 > RADIOACTIVE SEEDS Surgical History Hx of knee surgery LEFT KNEE > 2 NAILS History of surgery on arm RIGHT ARM >FOR BREAK WITH METAL PLATE History of lithotripsy History of colonoscopy History of heart artery stent x2 (2018) History of cardiac cath 05/2019 - [facility] [place] - 2 stents Family History Family/Other Prostate cancer Self Myocardial infarction Self Mother Congestive heart failure Other No significant family history Denies family history of Ovarian cancer Breast cancer Colorectal cancer Social History Smoking Status: Former smoker Tobacco Type: Cigarettes Age Started Using Tobacco: 13; Age Quit Using Tobacco: 49; packs per day: 1.5; Second Hand Exposure: No; Do You Dip or Chew Tobacco: No; Hx Alcohol Use: No (no alcohol use since ~ end 2022) Hx Substance Use: No Preferred Language: Barbadian Communication Ability: Effective Visual Impairment: Limited Hearing Ability: Hard of Hearing Clinical Esthetician Required: No Beliefs That Will Affect Care: None marital status: Current Living Situation: Alone Current Living Situation Comment: has caregiver that comes in daily current occupational status: retired How many Children do You have: 4 Feels Safe at Home: Yes Childhood Exposure to Second-Hand Smoke: Yes Diet: regular caffeine: Yes during the past year weight has: remained stable Dental Care, Regularly: Yes Physical Activity Frequency: Daily Seatbelt Use: always Sunscreen Use: Yes Assistive Devices: Denture - Upper, Denture - Lower, Glasses and Hearing Aid - Bilateral Review of Systems Review of Systems: All systems reviewed & are unremarkable except as noted in HPI & below Physical Exam Constitutional: WD/WN, vitals as above Eyes: no conjunctival abnormality ENMT: Ears: no hearing impairment and no external ear abnormality Mouth: no oropharynx abnormality Neck: trachea midline Respiratory: normal respiratory effort; no respiratory distress and no labored breathing Cardiovascular: Rate/Rhythm: regular rate and regular rhythm Gastrointestinal (Abdomen): Soft and nonrigid. There is no tenderness to palpation Musculoskeletal: No calf tenderness Skin: no rashes Neurologic: moves all extremities Psychiatric: A+Ox3, euthymic affect Genitourinary: No CVA tenderness with percussion bilaterally. Patient's left inguinal incision is well-approximated. There is a small amount of erythema surrounding the incision but no overt signs of infection. There is only slightly tender to palpation. There is no drainage from the incision. Results & Data Vital Signs (Past 12 Hours) Vital Signs Temp Pulse Pulse Resp BP BP Pulse Ox 05/11/24 23:51 60 18 139/68 95 05/11/24 23:15 68 05/11/24 22:00 71 18 150/69 H 92 05/11/24 20:52 71 19 130/61 95 05/11/24 19:11 69 05/11/24 18:57 05/11/24 18:56 36.9 C 71 22 132/61 95 O2 Del Method 05/11/24 23:51 Room Air 05/11/24 23:15 05/11/24 22:00 Room Air 05/11/24 20:52 Room Air 05/11/24 19:11 05/11/24 18:57 Room Air 05/11/24 18:56 Room Air PG Care Time/CCT Total # of Minutes Spent Total Time Spent with Patient: Total time spent is greater than 50% in coordination of care (as documented) at patient's floor/unit and/or counseling patient: Coding Level of Care Code None Diagnoses Weakness R53.1
[2024-05-12] MEDS: ACETAMINOPHEN 325 MG TAB PO PRN (05:26)
[2024-05-12 07:56] LABS: Basophils # (auto) 0.02 K/uL (0.00-0.20); Basophils % (auto) 0.2 %; Eosinophils # (auto) 0.08 K/uL (0.00-0.50); Eosinophils % (auto) 0.8 %; Hematocrit (blood only) 30.8 % (42.0-52.0); Hemoglobin 10.7 g/dl (14.0-18.0); Immature Granulocytes # (auto) 0.09 K/uL (0.01-0.20); Lymphocytes # (auto) 0.88 K/uL (1.20-3.40); Lymphocytes % (auto) 9.3 %; Mean Corpuscular Hemoglobin 29.5 pg (25.0-34.0); Mean Corpuscular Hgb Conc 34.7 g/dL (32.0-36.0); Mean Corpuscular Volume 84.8 fL (80.0-100.0); Mean Platelet Volume 10.2 fL (9.4-12.4); Monocytes # (auto) 2.32 K/uL (0.11-0.59); Monocytes % (auto) 24.6 %; Neutrophils # (auto) 6.04 K/uL (1.40-6.50); Neutrophils % (auto) 64.1 %; Platelet Count 136 K/uL (130-400); RDW Coefficient of Variation 13.6 % (11.5-14.5); RDW Standard Deviation 42.5 fL (36.4-46.3); Red Blood Count 3.63 M/uL (4.70-6.10); White Blood Count 9.43 K/ul (4.8-10.8)
[2024-05-12 08:20] LABS: BUN Creatinine Ratio 15.9 (10-20); Bilirubin,Total 0.8 mg/dl (0.2-1.0); Calcium 8.2 mg/dl (8.6-10.3); Creatinine Clr Calc Pharmacy 78.2 ml/min; Globulin 2.9 gm/dl (2.5-4.0); Magnesium 1.6 mg/dl (1.7-2.4); Potassium 3.5 mmol/L (3.5-5.1); Total Protein 5.9 gm/dl (6.0-8.3)
[2024-05-12] MEDS: ATORVASTATIN 40 MG TAB PO SCH (08:35)
[2024-05-12] MEDS: CLOPIDOGREL BISULFATE 75 MG TAB PO SCH (08:35)
[2024-05-12] MEDS: BICALUTAMIDE 50 MG TAB PO SCH (08:35)
[2024-05-12] MEDS: PANTOprazole 40 MG TAB PO SCH (08:36)
[2024-05-12] MEDS: ESCITALOPRAM OXALATE 10 MG TAB PO SCH (08:36)
[2024-05-12] MEDS: TIMOLOL MALEATE 0.5% OP SOLN 5 ML BTL OP SCH (08:37)
[2024-05-12] MEDS: HEPARIN SOD 5,000 UNIT/0.5 ML VIAL SQ SCH (08:39)
--- NOTE | 2024-05-12 09:50 | Urology Progress Note ---
Date of Service May 12, 2024 Assessment & Plan (1) Weakness: (2) Mass of testicle: (3) History of orchiectomy, unilateral: Plan: 83-year-old male admitted for generalized weakness. He is status post inguinal radical left orchiectomy for testicular mass on 05/09. Afebrile, hemodynamically stable Labs reviewedcreatinine 0.88, no leukocytosis, hemoglobin 10.7 UA on arrival was not suggestive of infection Tamsulosin and Bactrim have been held due to possible adverse reaction He was initiated on antibiotics with Ceftriaxone Plan to discharge with course of antibiotics at discharge No acute intervention warranted Consider PT/OT evaluation Continue supportive care and medical management per hospital medicine Pathology pending Will arrange outpatient follow-up for postop and pathology review will sign off, recall as needed Admission and Anticipated Discharge Date Admission Date: May 11, 2024 Subjective Patient seen and examined at bedside this morning. He is awake and resting in bed. He reports generalized weakness started yesterday. He reports he initially felt well after surgery. He feels that weakness may be related to new medications after surgery including tamsulosin. He reports low appetite. Denies pain. He is voiding spontaneously without difficulty. No fever or chills. Reports BM after surgery. Review of Systems Constitutional: as per Subjective / HPI Genitourinary: + as per Subjective / HPI Physical Exam Constitutional: well developed and well nourished; no acute distress Respiratory: normal respiratory effort; no respiratory distress and no labored breathing Gastrointestinal (Abdomen): Inspection/Auscultation: abdomen normal to inspection Musculoskeletal: Head/Neck/Chest: normocephalic Neurologic: moves all extremities and awake Psychiatric: Orientation: alert and oriented x 3 Results & Data Vital Signs (Past 12 Hours) Vital Signs Temp Pulse Pulse Pulse Resp BP BP 05/12/24 07:56 36.9 C 59 L 18 113/64 05/12/24 07:13 72 05/12/24 03:53 37.3 C 66 18 134/77 05/12/24 00:20 71 05/12/24 00:14 36.8 C 84 18 139/68 05/11/24 23:51 60 18 139/68 05/11/24 23:15 68 05/11/24 22:00 71 18 150/69 H Pulse Ox O2 Del Method 05/12/24 07:56 95 Room Air 05/12/24 07:13 05/12/24 03:53 92 Room Air 05/12/24 00:20 05/12/24 00:14 96 Room Air 05/11/24 23:51 95 Room Air 05/11/24 23:15 05/11/24 22:00 92 Room Air PG Care Time/CCT Total # of Minutes Spent Total Time Spent with Patient: Total time spent is greater than 50% in coordination of care (as documented) at patient's floor/unit and/or counseling patient: Coding Level of Care Code 62635 SUB INP/OBS CARE 07/02MIN Diagnoses Weakness R53.1 Mass of testicle N50.89 History of orchiectomy, unilateral Z90.79
[2024-05-12] MEDS: MAGNESIUM SULFATE / D5W 1 GM/100 ML BAG IV ONE (11:21)
[2024-05-12 11:36] VITALS: PULSE 64; TEMP 98.2; O2SAT 94
--- NOTE | 2024-05-12 14:07 | Discharge Summary ---
Discharge Summary Date of Service May 12, 2024 Principal Dx & Hospital Course #1 = Principal Diagnosis (1) Weakness: Patient presented with acute onset of bilateral upper and lower extremity weakness/generalized weakness. Denies lightheadedness. Symptoms began early in the morning of 05/11 upon awakening. He was unable to get up and out of bed and dragged himself across the floor to the restroom. The symptoms persisted throughout the day. Patient recently had an unilateral orchiectomy performed on 05/09. He was started on tamsulosin 0.4 mg at bedtime, which he took the evening of 05/10. He was also started on Bactrim DS twice daily. Urinalysis shows hematuria, but no clear signs of active infection Surgical site looks noninfected and he was seen by urology here who agrees with this. ECG without acute ischemic changes. Telemetry here with normal sinus rhythm throughout his stay Magnesium mildly low and replaced Chest x-ray normal Suspect patient's symptoms are due to an adverse reaction to tamsulosin, and/or Bactrim DS, both of which will be held His orthostatic vital signs were positive here even after receiving IV fluids and holding tamsulosin although his blood pressure with standing was still in the normal range Patient now feels much improved and ambulated around the halls with physical therapy without difficulty. Likely orthostasis from Flomax-discontinue Flomax. Discontinue Bactrim in case related to that as well. Discharge to home. Patient was offered home health but he declined at this time and he does have a 24/7 paid caregiver at home (2) Mass of testicle: Status post orchiectomy-pathology pending Follow-up with urology as an outpatient (3) Prostate cancer: Continue bicalutamide (4) CAD (coronary artery disease): CAD/HTN-with orthostasis as above but now asymptomatic. He has a history of PCI of mid RCA with 2 overlapping BROCK, moderate nonobstructive CAD otherwise Okay to resume home lisinopril Continue home Plavix, atorvastatin, Zetia Plan Disposition-stable for discharge to home Notes For Next Care Provider Medication Changes From Visit See list Admission HPI Per Admitting Provider The patient is an 83-year-old male with a past medical history including history of traumatic subdural hematoma, anemia, syncope, CAD, prostate cancer, hypertension, GERD, NSTEMI. He underwent an inguinal radical orchiectomy of the left testicle secondary to testicular mass on 05/09/2024. He had been doing well on May 10, but awoke on the morning of May 11 with severe symptoms as noted above. He had been discharged on tamsulosin, which he took the night before, and Bactrim DS twice daily. He denies any associated fevers or chills, nausea or vomiting. He did report some issues with controlling his urine. Discharge Exam Constitutional WD/WN, vitals as above Respiratory normal respiratory effort, lungs clear to auscultation Cardiovascular RRR, no murmur, no edema Psychiatric A+Ox3, euthymic affect Discharge Plan Discharge Items Patient Disposition: Home - Self-Care Reason For Visit: WEAKNESS,S/P ORCHIECTOMY Discharge Diagnosis: Weakness,possibly related to medication side effect Condition on Discharge: Good Activity: Resume your previous activity Non-emergency contact: Primary Care Provider and Urologist Call non-emergency contact if: you have any medication questions and your symptoms worsen Follow-up/Referrals: Elizabeth Stock MD [Primary Care Provider] - 05/19/24 11:30 am () Diet: Heart Healthy Addtl Attending Provider Instructions: You were admitted for generalized weakness which may have been a side effect of a new medication versus over-exerting yourself after having recent surgery. You are improved and the Flomax and sulfamethoxazole are now stopped. You will be prescribed a new antibiotic for 2 more days called cefdinir, to be taken twice a day. Pending Studies at Discharge: No Stand-Alone Forms: My [facility] Medications and DC Order Prescriptions: New cefdinir 300 mg capsule 300 mg PO BID Qty: 4 0RF Continued lisinopril 10 mg tablet 10 mg PO QAM Qty: 90 3RF clopidogrel 75 mg tablet 75 mg PO DAILY Qty: 90 3RF escitalopram oxalate [Lexapro] 5 mg tablet 5 mg PO DAILY Qty: 90 3RF ezetimibe 10 mg tablet 10 mg PO HS Qty: 90 3RF atorvastatin 40 mg tablet 80 mg PO QAM Qty: 180 1RF pantoprazole 40 mg tablet,delayed release (DR/EC) 40 mg PO QAM Qty: 90 3RF timolol 0.5 % drops 1 drp OPB BID bicalutamide [Casodex] 50 mg tablet 50 mg PO TID 90 Days Qty: 270 3RF nitroglycerin [Nitrostat] 0.4 mg tablet, sublingual 0.4 mg sublingual PRN PRN (Reason: chest pain) Qty: 1 0RF lorazepam 0.5 mg tablet 0.5 mg PO DAILY PRN (Reason: anxiety) Qty: 30 3RF acetaminophen 500 mg tablet 500 mg PO Q6H PRN (Reason: Pain) latanoprost 0.005 % drops 1 drp OPB HS oxycodone-acetaminophen [Percocet] 7.5-325 mg tablet 1 tab PO Q8H PRN (Reason: pain) 3 Days Qty: 7 0RF Discontinued sulfamethoxazole-trimethoprim [Bactrim DS] 800-160 mg tablet 1 tab PO Q12H Qty: 10 0RF tamsulosin 0.4 mg capsule 0.4 mg PO HS Qty: 30 0RF Discharge Orders: Discharge Order (Routine); Ordered 05/12/24 Ordered By: Genevieve Olivia Admission Data Admit Date/Time: 05/11/24 22:45 Attending Provider: Genevieve Olivia Admit Provider: Tyrone Mcgowan Primary Care Provider: Elizabeth Stock Other Providers: Tyrone Mcgowan; Ervin Westbrook Other Interventions: Discharge Summary Assessment (RN) Last Done: 05/12/24 14:11 Hospital Stay Data Consultations 05/11/24 21:10 ED Decision to Admit Stat 05/11/24 22:46 Consult Urology Routine Pending Results Patient Have Any Pending Studies at Discharge: No Discharge Instructions Given to Patient (Per Discharging Provider) You were admitted for generalized weakness which may have been a side effect of a new medication versus over-exerting yourself after having recent surgery. You are improved and the Flomax and sulfamethoxazole are now stopped. You will be prescribed a new antibiotic for 2 more days called cefdinir, to be taken twice a day. Total Time Total Time Spent Total Time Spent (In Minutes): 35 min Total Time Includes: Examination of the Patient, Discharge Planning and Medication Reconciliation Coding Level of Care Code 52097 INP/OBS DISCH >30 MIN Diagnoses Weakness R53.1 Mass of testicle N50.89 Prostate cancer C61 Coronary artery disease of [place] artery of [place] heart with stable angina pectoris I25.118 Associated angina: with stable angina Coronary Disease-Associated Artery/Lesion type: [place] artery [place] vs. transplanted heart: [place] heart
[2024-05-12 14:14] VITALS: BP 139/68
--- NOTE | 2024-05-12 15:03 | Electrocardiogram Report ---
Test Reason : Blood Pressure : */* mmHG Vent. Rate : 72 BPM Atrial Rate : 72 BPM P-R Int : 222 ms QRS Dur : 78 ms QT Int : 388 ms P-R-T Axes : 47 -17 77 degrees QTcB Int : 424 ms Sinus rhythm with 1st degree A-V block Low voltage QRS Septal infarct (cited on or before 18-May-2019) Abnormal ECG When compared with ECG of 02-May-2024 14:37, No significant change was found Confirmed by Oumar Ramirez ([id number]) on 05/12/2024 3:03:07 PM Referred By: REFERRED SELF Confirmed By: Oumar Ramirez
[2024-05-12] MEDS ORDERED: EZETIMIBE 10 MG TAB PO SCH (21:00)
[2024-05-12] MEDS ORDERED: LATANOPROST 0.005% OP SOLN 2.5 ML BTL OPB SCH (21:00)
[2024-05-12] MEDS ORDERED: cefTRIAXone SODIUM 2,000 MG/50 ML BAG IV SCH (23:00)
--- NOTE | 2024-05-16 09:16 | Electrocardiogram Report ---
Test Reason : Blood Pressure : */* mmHG Vent. Rate : 68 BPM Atrial Rate : 68 BPM P-R Int : 224 ms QRS Dur : 80 ms QT Int : 408 ms P-R-T Axes : 27 2 58 degrees QTcB Int : 433 ms Sinus rhythm with 1st degree A-V block Low voltage QRS Borderline ECG When compared with ECG of 11-May-2024 18:48, No significant change was found Confirmed by Ha Pickens ([id number]) on 05/16/2024 9:15:39 AM Referred By: REFERRED SELF Confirmed By: Ha Pickens
== END 2024-05-12 15:20 | disposition home or self-care (01) ==
LOC: 2N 18:43 → ED 18:43 → SUATTDRO 22:45 → 2N 05-12 00:01